=== PATIENT | female | born 1945 | race Caucasian/White ===

== ENCOUNTER 2018-02-04 20:53 | Emergency (ER) | payer MEDICARE, BC ==
[2018-02-04 22:44] LABS: Appearance,Urine Clear (Clear); Bilirubin,Urine Negative (Negative); Blood,Urine Negative (Negative); Color,Urine Light Yellow; Glucose,Urine (UA) Negative (Negative); Ketones,Urine Negative (Negative); Leukocyte Esterase,Urine Negative (Negative); Nitrite,Urine Negative (Negative); Protein,Urine Negative (Negative); Specific Gravity,Urine 1.007 (1.001-1.035); Urobilinogen,Urine <2.0 mg/dL (<2.0)
[2018-02-04 22:45] VITALS: RESP 18
--- NOTE | 2018-02-04 23:11 | ED ---
Female Urogenital HPI - General Chief complaint: Urogenital Stated complaint: bladder problems Time Seen by Provider: 02/04/18 21:31 Source: patient, RN notes reviewed, old records reviewed Mode of arrival: ambulatory Limitations: no limitations - History of Present Illness Initial comments: Patient is a 72-year-old female presents with a bulge from her bladder. Patient states that she has been working in her garden today doing a lot of heavy lifting. She felt a sudden pull involved in her bladder. Just concerned for possibility of urinary tract infection. Is your purse that she's had two children. Patient had a hysterectomy. - Related Data Home Medications Medication Instructions Recorded Confirmed Aspirin 81 mg PO DAILY 01/09/14 02/04/18 Jamie Cit/Mag/D3/Zn/General Operations Agent/Jorge/Bor 1 tab PO DAILY 01/09/14 02/04/18 [Citracal-Vit D + Magnesium Tab] Cholecalciferol [Vitamin D3] 2,000 unit PO DAILY@1200 01/09/14 02/04/18 Citalopram Hydrobromide [CeleXA] 10 mg PO DAILY 01/09/14 02/04/18 Cyanocobalamin [Vitamin B-12] 500 mcg PO DAILY@1200 01/09/14 02/04/18 Levothyroxine Sodium [Synthroid] 100 mcg PO DAILY 01/09/14 02/04/18 Simvastatin [Zocor] 10 mg PO HS 01/09/14 02/04/18 Ubidecarenone [Coq-10] 200 mg PO DAILY 01/09/14 02/04/18 rOPINIRole HCL [Requip] 0.5 mg PO HS 01/09/14 02/04/18 ALPRAZolam [Xanax] 0.25 mg PO DAILY PRN 02/04/18 02/04/18 Climax-3 Fatty Acids/Fish Oil [Fish 1 cap PO DAILY 02/04/18 02/04/18 Oil 1,000 mg Softgel] Ranitidine HCl 150 mg PO DAILY PRN 02/04/18 02/04/18 traZODone HCL [Desyrel] 100 mg PO HS 02/04/18 02/04/18 Allergies Allergy/AdvReac Type Severity Reaction Status Date / Time No Known Allergies Allergy Verified 02/04/18 21:24 Review of Systems ROS Statement: Those systems with pertinent positive or pertinent negative responses have been documented in the HPI. ROS Other: All systems not noted in ROS Statement are negative. Past Medical History Past Medical History: Hyperlipidemia, Musculoskeletal Disorder, Neurologic Disorder, Thyroid Disorder Additional Past Medical History / Comment(s): osteoporosis, restless leg History of Any Multi-Drug Resistant Organisms: None Reported Past Surgical History: Appendectomy, Hysterectomy, Tonsillectomy Additional Past Surgical History / Comment(s): Lt cataract 12/2013 Past Anesthesia/Blood Transfusion Reactions: No Reported Reaction Past Psychological History: Anxiety, Depression Smoking Status: Never smoker - Past Family History Mother Family Medical History: Cancer, Coronary Artery Disease (CAD) Additional Family Medical History / Comment(s): colon General Exam - General Exam Comments Initial Comments: 72 year old female, no dsitress. Limitations: no limitations Head exam: Present: atraumatic, normocephalic, normal inspection Eye exam: Present: normal appearance, PERRL, EOMI. Absent: scleral icterus, conjunctival injection, periorbital swelling ENT exam: Present: normal exam, mucous membranes moist Neck exam: Present: normal inspection. Absent: tenderness, meningismus, lymphadenopathy Respiratory exam: Present: normal lung sounds bilaterally. Absent: respiratory distress, wheezes, rales, rhonchi, stridor Cardiovascular Exam: Present: regular rate, normal rhythm, normal heart sounds. Absent: systolic murmur, diastolic murmur, rubs, gallop, clicks GI/Abdominal exam: Present: soft, normal bowel sounds. Absent: distended, tenderness, guarding, rebound, rigid External exam: Present: normal external exam Speculum exam: Present: other (evidence of cystocele). Absent: normal speculum exam By manual exam: Present: normal by manual exam. Absent: cervical motion tenderness, adnexal tenderness Extremities exam: Present: normal inspection, full ROM, normal capillary refill. Absent: tenderness, pedal edema, joint swelling, calf tenderness Back exam: Present: normal inspection Neurological exam: Present: alert, oriented X3, CN II-XII intact Psychiatric exam: Present: normal affect, normal mood Course Vital Signs 02/04/18 02/04/18 02/04/18 21:03 22:44 23:20 Temperature 98.1 F 98.3 F Pulse Rate 71 62 58 L Respiratory 16 18 18 Rate Blood Pressure 161/79 132/60 146/67 O2 Sat by Pulse 97 98 98 Oximetry Medical Decision Making - Medical Decision Making Presents with a bulge in her pelvic region concern for a bladder bulging. She was doing heavy lifting today. On physical exam she does have an evidence of cystocele. Urinalysis is negative for infection. Patient will follow up with OB /THERMOSTAT MACHINE TENDER and gone and urology for possibly a bladder sling and repair. Patient agrees to plane will comply. Discussed no heavy lifting. - Lab Data Lab Results 02/04/18 Range/Units 22:33 Urine Color Light Yellow Urine Appearance Clear (Clear) Urine pH 7.0 (5.0-8.0) Ur Specific [place] 1.007 (1.001-1.035) Urine Protein Negative (Negative) Urine Glucose (UA) Negative (Negative) Urine Ketones Negative (Negative) Urine Blood Negative (Negative) Urine Nitrite Negative (Negative) Urine Bilirubin Negative (Negative) Urine Urobilinogen <2.0 (<2.0) mg/dL Ur Leukocyte Esterase Negative (Negative) Disposition Clinical Impression: Bladder prolapse Disposition: HOME SELF-CARE Condition: Good Instructions: Cystocele (ED) Additional Instructions: Patient has a follow-up with primary care provider as well as urologist and alum operator. Return to emergency department if any alarming signs or symptoms occur. Is patient prescribed a controlled substance at d/c from ED?: No When asked, does pt state using other controlled substances?: No If prescribed controlled substance>3 days was MAPS reviewed?: No If opioid is for acute pain is fill amount 7 days or less?: No If Rx opioid, was Start Talking consent form obtained?: No Referrals: Woody Abreu MD [Primary Care Provider] - 1-2 days Elvia Diaz DO [Doctor of Osteopathic Medicine] - 1-2 days Oli Jett MD [STAFF PHYSICIAN] - 1-2 days Time of Disposition: 23:10
[2018-02-04 23:21] VITALS: BP 146/67; PULSE 58; TEMP 98.3
== END 2018-02-04 23:33 | disposition home or self-care (01) ==
LOC: EC 20:53
DX: N81.10 Cystocele, unspecified (principal); E78.5 Hyperlipidemia, unspecified; G25.81 Restless legs syndrome; E07.9 Disorder of thyroid, unspecified; F32.9 Major depressive disorder, single episode, unspecified; F41.9 Anxiety disorder, unspecified; Z79.82 Long term (current) use of aspirin; Z79.899 Other long term (current) drug therapy; Z90.710 Acquired absence of both cervix and uterus; X50.0XXA Overexertion from strenuous movement or load, initial encounter; Y93.89 Activity, other specified; Y92.007 Garden or yard of unspecified non-institutional (private) residence as the place of occurrence of the external cause
CPT/HCPCS: 81003; 99284

== ENCOUNTER 2020-04-24 05:54 | Day surgery (SDC) | payer BC, MEDICARE ==
[~2020-04-24 05:54] MED LIST: ALPRAZolam 0.25 MG TAB PO PRN; ALPRAZolam 0.5 MG TAB PO PRN; NITROGLYCERIN SL TABS 0.4 MG TAB SUBLINGUAL PRN; SODIUM CHLORIDE 0.9% 1,000 ML in EMPTY BAG 1 BAG IV ONE
[2020-04-24] MEDS ORDERED: SODIUM CHLORIDE 0.9% 1,000 ML IV ONE (06:44)
[2020-04-24] MEDS ORDERED: ATORVASTATIN 80 MG TAB PO ONE (07:00)
[2020-04-24] MEDS ORDERED: ASPIRIN 325 MG TAB PO ONE (07:00)
[2020-04-24] MEDS ORDERED: LIDOCAINE 1% INJ 10MG/ML (20 ML MDV) ONE (07:17)
[2020-04-24] MEDS ORDERED: VERAPAMIL 2.5 MG/ML 2 ML AMP ONE (07:17)
[2020-04-24] MEDS ORDERED: fentaNYL (PF) 50 MCG/ML 2 ML AMP ONE (07:17)
[2020-04-24] MEDS ORDERED: fentaNYL (PF) 50 MCG/ML 2 ML AMP IV ONE (07:24)
[2020-04-24] MEDS ORDERED: LIDOCAINE 1% INJ 10MG/ML (20 ML MDV) SQ ONE (07:27)
[2020-04-24] MEDS ORDERED: MIDAZOLAM 2 MG/2 ML VIAL IV ONE (07:29)
[2020-04-24] MEDS ORDERED: VERAPAMIL SYRINGE (5 MG/10 ML) INTRAARTER ONE (07:30)
[2020-04-24] MEDS ORDERED: CLOPIDOGREL 75 MG TAB ONE (07:43)
[2020-04-24] MEDS ORDERED: BIVALIRUDIN BOLUS 250 MG/50 ML IV ONE (07:47)
[2020-04-24] MEDS ORDERED: CLOPIDOGREL 75 MG TAB PO ONE (07:48)
[2020-04-24] MEDS ORDERED: BIVALIRUDIN 250 MG in SODIUM CHLORIDE 0.9% 50 ML IV ONE (07:48)
[2020-04-24] MEDS ORDERED: NITROGLYCERIN 1000MCG/10ML SYRINGE INTRACORON ONE (07:54)
[2020-04-24] MEDS ORDERED: IOPAMIDOL-370 125ML BTL INJ ONE (07:56)
[2020-04-24] MEDS ORDERED: IOPAMIDOL-370 100ML BTL INJ ONE (08:05)
[2020-04-24] MEDS ORDERED: NITROGLYCERIN SL TABS 0.4 MG TAB SUBLINGUAL PRN (08:24)
[2020-04-24] MEDS ORDERED: ZOLPIDEM 5 MG TAB PO PRN (08:24)
[2020-04-24] MEDS ORDERED: MAG HYDROX/AL HYDROX/SIMETH 30 ML CUP PO PRN (08:24)
[2020-04-24] MEDS ORDERED: ATROPINE SULFATE 0.1 MG/ML 10ML SYRINGE IV PRN (08:24)
[2020-04-24] MEDS ORDERED: RX INFO: IV CONTRAST WAS GIVEN 1 EACH MISC MISCELLANE PRN (08:24)
[2020-04-24] MEDS ORDERED: SODIUM CHLORIDE 0.9% 1,000 ML IV SCH (08:30)
[2020-04-24] MEDS ORDERED: FAMOTIDINE 20 MG TAB PO SCH ×2 (09:00→21:00)
[2020-04-24] MEDS ORDERED: LEVOTHYROXINE 50 MCG TAB PO SCH (09:30)
[2020-04-24 09:38] LABS: Cholesterol 114 mg/dL (<200); HDL Cholesterol 34 mg/dL (40-60); LDL Cholesterol,Calculated 46 mg/dL (0-99); Triglycerides 168 mg/dL (<150)
--- NOTE | 2020-04-24 10:04 | CC ---
CARDIAC CATHETERIZATION REPORT Mrs. Chambers is a 74-year-old female with a known history of hyperlipidemia, history of coronary artery disease who presented with new onset exertional chest discomfort, consistent with angina pectoris. In view of that, recommendation made regarding cardiac catheterization. The procedures, risks, and complication were discussed with the patient who is in full understanding and agreement. PROCEDURE: Patient was brought to laborer pie bakery in a fasting semi-sedated state after receiving fentanyl and Benadryl and achieving moderate conscious sedated state. Using Xylocaine anesthesia and Seldinger technique, a 6-Greek sheath was introduced in the right radial artery. Selective right and left coronary angiography performed using 5-Greek 3.5 bend right and left Evelio catheter, multiple views of the coronary artery including hemiaxial views were obtained. Following that, angioplasty and stenting was performed, following that 5-Greek tight pigtail catheter introduced into the left ventricle and pressures were calculated. Following that, catheter and sheath were removed. Hemostasis was obtained and deployment of TR band. There was no immediate complication. Patient is returned to her room in stable condition. FINDINGS: LEFT MAIN: This is a short size vessel, bifurcating into left circumflex, left main coronary artery has no evidence of high-grade stenosis. LEFT ANTERIOR DESCENDING ARTERY: This is a large-sized vessel, reaching toward the apex with a wraparound apex segment, giving rise to a large diagonal branch at the takeoff of the first septal rn field case manager. There is a long 99% stenosis, there is slow flow in the distal LAD. LEFT CIRCUMFLEX: This is a nondominant large size vessel giving rise to 4 obtuse marginal branch. The second one is the largest in caliber, the second obtuse marginal branch has a 20% plaque. The rest of the vessel has no high-grade stenosis. RIGHT CORONARY ARTERY: This is a dominant vessel, large in caliber, bifurcating distally to PDA and posterolateral segment and branches. The right coronary artery in mid segment, has an intimal disease of 30% to 40%. The rest of the vessel has no high- grade stenosis. COLLATERALS: There is collateral from the right coronary system toward the LAD through the septal perforators. LEFT VENTRICULOGRAM: Left ventriculogram is not performed. HEMODYNAMICS: There was no gradient across the aortic valve. The left ventricular end- diastolic pressure calderon 12-16 mmHg. CONCLUSION: 1. Subtotally occluded proximal LAD in a long segment. 2. Mild disease in the left circumflex and the right coronary artery. RECOMMENDATION: In view of finding anatomy, I recommend proceeding with angioplasty and stenting of the LAD. The procedures, risks, and complication were discussed with the patient who is in full understanding and agreement. SORAYA / DILIP: [id number] /
--- NOTE | 2020-04-24 10:14 | LTR ---
DATE OF SERVICE: 04/24/2020 RE: Malu Chambers Dear Dr. Abreu; I had the pleasure to perform cardiac catheterization and coronary angioplasty and stenting on Mrs. Chambers at [facility] on April 24, 2020 and a full coy of the procedure note will be forwarded to you. In brief, she was found to have subtotally occluded proximal and mid LAD and underwent successful stenting of that vessel. I am hopeful that this procedure will stabilized her status and thank you again for allowing me to participate in this patient's personal care. Please feel free to call for any questions. Sincerely yours, MD AVANI GrijalvaL / ROBERTN: [id number] /
--- NOTE | 2020-04-24 10:14 | PTCA ---
PERCUTANEOUSTRANS CORORONARY ANGIOGRAPHY Mrs. Chambers is a 74-year-old female who presented with symptoms of new onset exertional angina pectoris, underwent cardiac catheterization, was found to have critical stenosis involving the proximal LAD. In view of that, recommendation made regarding angioplasty and stenting, the procedures, risks, and complication were discussed with the patient who is in full understanding and agreement. PROCEDURE: A 6-Croatian EBU 3.75 guiding catheter introduced into the system after cannulating the left main, a 0.014 balanced medium weight J-wire was advanced across the lesion, positioned distally, then a 2.5 x 15 mm Trek balloon was advanced. One inflation was performed at 8 atmospheres. Following that, the balloon was removed and a 3.5 x 23 mm Xience [place] stent was advanced, deployed and post dilated at 16 atmospheres, after the last inflation, after appropriate wait, the balloon and the guidewire were withdrawn back in the guiding catheter. Images were obtained and repeated. Those images reveal stable successful stenting. At that point, the guiding catheter, the balloon and the guidewire were removed. The left ventricular end-diastolic pressure was calculated. Following that, catheter and sheath were removed. Hemostasis was obtained with deployment of TR band. There was no immediate complication. Patient was returned to his room in stable condition. Of note, the patient had arm discomfort with inflation. This resulted in the end of the procedure. She had no significant EKG changes. She received Angiomax per protocol as well as oral loading dose of clopidogrel. RESULTS: Successful stenting of a long segment of the proximal mid LAD with reduction of stenosis from 99% to 0%. RECOMMENDATION: Patient will be continued on aspirin, Plavix and statin. The importance of dual antiplatelet treatment were discussed with the patient, her family and they are in full understanding and agreement. Duration of sedation 39 minutes. MMODL / IJN: [id number] /
[2020-04-24 11:03] VITALS: BMI 26.0
[2020-04-24] MEDS: LEVOTHYROXINE 100 MCG TAB PO SCH (11:10)
[2020-04-24] MEDS ORDERED: ACETAMINOPHEN TAB 325 MG TAB PO PRN (13:11)
[2020-04-24] MEDS ORDERED: HYDROcodone/APAP 5-325MG 1 EACH TAB PO STA (14:51)
[2020-04-24] MEDS ORDERED: CHOLECALCIFEROL 1,000 UNIT TAB PO SCH (17:30)
[2020-04-24] MEDS ORDERED: traZODone HCL 100 MG TAB PO SCH (21:00)
[2020-04-24] MEDS: METOPROLOL TARTRATE 25 MG TAB PO SCH (21:45)
[2020-04-25] MEDS: LEVOTHYROXINE 100 MCG TAB PO SCH (06:53)
[2020-04-25 07:03] LABS: African American GFR (CKD) >90 (>60 ml/min/1.73 sqM); Anion Gap 5 mmol/L; Blood Urea Nitrogen 9 mg/dL (7-17); Calcium 8.7 mg/dL (8.4-10.2); Carbon Dioxide 22 mmol/L (22-30); Chloride 111 mmol/L (98-107); Glucose 129 mg/dL (74-99); Non-African American GFR(CKD) >90 (>60 ml/min/1.73 sqM); Sodium 138 mmol/L (137-145)
[2020-04-25 07:07] LABS: Potassium 4.6 mmol/L (3.5-5.1)
[2020-04-25 08:19] VITALS: BP 142/67; PULSE 69; RESP 18; TEMP 97.4
[2020-04-25] MEDS: METOPROLOL TARTRATE 25 MG TAB PO SCH (08:34)
[2020-04-25] MEDS ORDERED: CLOPIDOGREL 75 MG TAB PO SCH (09:00)
[2020-04-25] MEDS ORDERED: ASPIRIN 81 MG PO SCH (09:00)
[2020-04-25] MEDS ORDERED: ATORVASTATIN 80 MG TAB PO SCH (09:00)
--- NOTE | 2020-04-25 09:32 | PN ---
PROGRESS NOTE Mrs. Chambers is a 74-year-old female who presented with symptoms of new onset angina pectoris, underwent cardiac catheterization, was found to have critical stenosis involving the proximal LAD, underwent stenting of that vessel. She is doing well this morning ambulating without difficulty, denying any chest pain or dyspnea. She is feeling better overall. She continues to be in sinus mechanism. She continues on aspirin once a day, Lipitor 80 mg daily, Plavix 75 mg daily, levothyroxine, metoprolol tartrate 25 mg twice a day. PHYSICAL EXAMINATION: Blood pressure 134/70 with heart rate in the 60s. LUNGS: Clear. HEART: Regular rate and rhythm, S1, S2. No S3. No rub. ABDOMEN: Soft, nontender. EXTREMITIES: No edema, right radial pulse intact. EKG revealed no acute changes. LAB DATA: Revealed BUN and creatinine 9 and 0.49, potassium 4.6. Cholesterol of 114, LDL of 46. IMPRESSION: 1. Status post stenting of the LAD. 2. Hypertension. 3. Hyperlipidemia. RECOMMENDATION: Patient will be discharged home today and followed as an outpatient. MMODL / IJN: [id number] /
== END 2020-04-25 09:13 | disposition home or self-care (01) ==
LOC: CATHCVL 05:54 → 3SCARD 09:01 → CATHCVL 04-25 09:13
PROVIDERS: ATTEND Internal Medicine Interventional Cardiology
DX: I25.110 Atherosclerotic heart disease of native coronary artery with unstable angina pectoris (principal); I25.82 Chronic total occlusion of coronary artery; I10 Essential (primary) hypertension; E03.9 Hypothyroidism, unspecified; E78.2 Mixed hyperlipidemia; Z79.02 Long term (current) use of antithrombotics/antiplatelets; Z79.82 Long term (current) use of aspirin; Z79.890 Hormone replacement therapy; Z79.899 Other long term (current) drug therapy; Z87.891 Personal history of nicotine dependence
CPT/HCPCS: 93458; 85347; 80061; 80048; C9600; C1769 ×2; C1887; C1725; C1874; C1894; J2250; J2001; J3010; J0583; Q9967 ×2

== ENCOUNTER 2021-04-03 09:32 | Day surgery (SDC) | payer MEDICARE ==
[2021-04-01 15:42] VITALS: BMI 22.3
[~2021-04-03 09:32] MED LIST changes: +ASPIRIN 325 MG TAB PO STA; +ATORVASTATIN 80 MG TAB PO STA
[2021-04-03] MEDS ORDERED: ISOSORBIDE MONONITRATE ER 30 MG TAB.ER.24H PO STA (09:58)
[2021-04-03] MEDS ORDERED: METOPROLOL TARTRATE 25 MG TAB PO STA (09:59)
[2021-04-03 10:06] LABS: Glucose,Whole Blood 124 mg/dL (75-99)
[2021-04-03 12:36] LABS: Basophils % (A) 1 %; Eosinophils # (A) 0.1 k/uL (0-0.7); Eosinophils % (A) 1 %; HCT 42.3 % (34.0-46.0); HGB 14.5 gm/dL (11.4-16.0); Lymphocytes # (A) 1.7 k/uL (1.0-4.8); Lymphocytes % (A) 29 %; MCH 31.9 pg (25.0-35.0); MCHC 34.2 g/dL (31.0-37.0); MCV 93.3 fL (80.0-100.0); Mean Platelet Volume 7.6; Monocytes # (A) 0.4 k/uL (0-1.0); Monocytes % (A) 7 %; Neutrophils # (A) 3.5 k/uL (1.3-7.7); Neutrophils % (A) 60 %; Platelet Count 274 k/uL (150-450); RBC 4.53 m/uL (3.80-5.40); RDW 14.1 % (11.5-15.5); WBC 5.7 k/uL (3.8-10.6)
[2021-04-03] MEDS ORDERED: LIDOCAINE 1% INJ 10MG/ML (20 ML MDV) SQ ONE (12:47)
[2021-04-03] MEDS ORDERED: fentaNYL (PF) 50 MCG/ML 2 ML AMP IV ONE (12:50)
[2021-04-03] MEDS ORDERED: MIDAZOLAM 2 MG/2 ML VIAL IV ONE (12:50)
[2021-04-03] MEDS ORDERED: VERAPAMIL SYRINGE (5 MG/10 ML) INTRAARTER ONE (12:51)
[2021-04-03] MEDS: HEPARIN SODIUM 1,000 UN/ML (10ML VL) IV ONE ×2 (12:53→13:01)
[2021-04-03] MEDS ORDERED: NITROGLYCERIN 1000MCG/10ML SYRINGE INTRACORON ONE (13:17)
[2021-04-03] MEDS ORDERED: IOPAMIDOL-370 125ML BTL INJ ONE (13:27)
[2021-04-03] MEDS ORDERED: IOPAMIDOL-370 100ML BTL INJ ONE (13:40)
[2021-04-03] MEDS ORDERED: MAG HYDROX/AL HYDROX/SIMETH 30 ML CUP PO PRN (13:54)
[2021-04-03] MEDS ORDERED: ZOLPIDEM 5 MG TAB PO PRN (13:54)
[2021-04-03] MEDS ORDERED: ATROPINE SULFATE 0.1 MG/ML 10ML SYRINGE IV PRN (13:54)
[2021-04-03] MEDS ORDERED: RX INFO: IV CONTRAST WAS GIVEN 1 EACH MISC MISCELLANE PRN (13:54)
[2021-04-03] MEDS ORDERED: NITROGLYCERIN SL TABS 0.4 MG TAB SUBLINGUAL PRN (13:54)
[2021-04-03] MEDS ORDERED: SODIUM CHLORIDE 0.9% 1,000 ML IV SCH (14:00)
--- NOTE | 2021-04-03 16:17 | CC ---
CARDIAC CATHETERIZATION REPORT Mrs. Chambers is a 75-year-old female with a known history of coronary artery disease status post stenting of the LAD in April 2020 who presented with symptoms of her recurrent exertional chest discomfort. In view of that, recommendation cardiac catheterization. The procedure as well as the risks and the complications were discussed with the patient who is in full understanding and agreement. PROCEDURE: Patient was brought to the blender laborer in a fasting semisedated state after receiving fentanyl and Benadryl and achieving moderate conscious sedated state using Xylocaine anesthesia and Seldinger technique, a 6-German sheath was introduced in the right radial artery. Selective right and left coronary angiography performed using 5- German 3.5 bend, right and left Evelio' catheter. Multiple views of the coronary artery including hemiaxial views were obtained. The right Evelio catheter was used to cross the aortic valve and left ventricular end-diastolic pressure was calculated. Following that, catheter was removed. Images were reviewed. FINDINGS: LEFT MAIN: This is a short size vessel, bifurcating into left circumflex, left anterior descending artery, left main coronary artery has no evidence of high-grade stenosis. LEFT ANTERIOR DESCENDING CORONARY ARTERY: This vessel is totally occluded proximally at the takeoff of the first septal senior commissary agent. There is no significant antegrade flow. The stented segment appears to be totally occluded. LEFT CIRCUMFLEX: This is a nondominant vessel giving rise to two large obtuse marginal branch. The first obtuse marginal branch has a 20% to 30% plaque without any evidence of high-grade stenosis. RIGHT CORONARY ARTERY: This is a large dominant vessel bifurcating into PDA and posterolateral segment and branches. The right coronary artery has tubular lesion in the mid segment of 20% to 30% without any evidence of high-grade stenosis. COLLATERALS: There are ipsilateral collaterals and contralateral collaterals to the mid LAD. LEFT VENTRICULOGRAM: Left ventriculogram was not performed. HEMODYNAMICS: There was no gradient across the aortic valve. The left ventricular end- diastolic pressure was 12-16 mmHg. CONCLUSION: 1. Total occlusion of the proximal LAD artery in the stented segment. 2. Mild disease in the RCA and the left circumflex. RECOMMENDATIONS: In view of findings and anatomy, I recommend proceeding with angioplasty and stenting of the left anterior descending artery. The procedure as well as the risks and complications were discussed with the patient who is in full understanding and agreement. MMODL / IJN: [id number] / MTDD
--- NOTE | 2021-04-03 16:28 | PTCA ---
PERCUTANEOUSTRANS CORORONARY ANGIOGRAPHY Mrs. Chambers is a 75-year-old female with history of coronary artery disease, history of diabetes and hyperlipidemia who presented with symptoms of angina pectoris, underwent cardiac catheterization, was found to have a totally occluded proximal LAD. In view of that, recommendations was made regarding angioplasty and stenting. The procedure as well as the risks and the complications were discussed with the patient who is in full understanding and agreement. PROCEDURE: A 6-Syrian [place] 3.5 guiding catheter was introduced in the system. After cannulating the left main, a 0.014 balanced medium weight J-wire with a SuperCross straight microcatheter was advanced and the total occlusion was crossed and the wire was positioned distally. Subsequently, the microcatheter was removed and a 3.0 x 12 mm NC Trek balloon was advanced and inflations at a maximum of 8 atmospheres were done. Following that, the balloon was removed and an [place] intravascular ultrasound catheter was advanced and images were obtained. Following that, the IVUS catheter was removed and a 3.5 x 23 mm Xience [place] was advanced, deployed and post dilated at 16 atmospheres. Following that, a 4.0 x 15 mm NC Trek balloon was advanced and inflation at 12 atmospheres were done. Following that, the balloon was removed and the [place] IVUS catheter was introduced and images were obtained. Following that, the catheter was removed. Images were obtained and repeated. Those images reveal stable successful stenting. At that point, the guiding catheter, the balloon and the guidewire were removed. The sheath was removed. Hemostasis was obtained with deployment of a TR band. There was no immediate complication. Patient was returned to room in stable condition. Of note, the patient received 5000 units of intravenous heparin as well as intra-arterial verapamil. Her ACT was followed and she was continued on clopidogrel. She had chest discomfort and EKG changes with the inflations that resolved at the end procedure. RESULTS: Successful stenting of the totally occluded LAD with reduction of stenosis from 100% to 0%. RECOMMENDATIONS: Patient will be continued on aspirin, Plavix, beta blockers, salima inhibitors and statin. The importance of dual antiplatelet treatment were discussed with the patient and her family and they are in full understanding and agreement. Duration of sedation is 52 minutes. MMODL / IJN: [id number] / [facility]
--- NOTE | 2021-04-03 16:32 | LTR ---
DATE OF SERVICE: 04/03/[address] Abreu: I had the pleasure of performing coronary angiography and coronary angioplasty and stenting on Mrs. Chambers at [facility] on April 03 and a full copy of procedure note will be forwarded to you. In brief, she was found to have a totally occluded left anterior descending artery, underwent stenting of that vessel. I am hopeful that this procedure will stabilize her status. I will keep you updated on her progress. Thank you again for allowing me to participate in her care. Please feel free to call for any questions. Sincerely, SORAYA / IJN: [id number] /
[2021-04-03 17:31] LABS: Glucose,Whole Blood 120 mg/dL (75-99)
[2021-04-03 19:40] VITALS: RESP 16
[2021-04-03] MEDS: METOPROLOL TARTRATE 25 MG TAB PO SCH (19:54)
[2021-04-03 20:04] LABS: Glucose,Whole Blood 130 mg/dL (75-99)
[2021-04-03] MEDS ORDERED: FAMOTIDINE 20 MG TAB PO SCH (21:00)
[2021-04-03] MEDS ORDERED: OXYBUTYNIN XL 5 MG TAB.ER.24 PO SCH (21:00)
[2021-04-04] MEDS ORDERED: ACETAMINOPHEN TAB 325 MG TAB PO PRN (02:00)
[2021-04-04 05:30] LABS: African American GFR (CKD) >90 (>60 ml/min/1.73 sqM); Anion Gap 7 mmol/L; Blood Urea Nitrogen 11 mg/dL (7-17); Calcium 9.1 mg/dL (8.4-10.2); Carbon Dioxide 23 mmol/L (22-30); Chloride 108 mmol/L (98-107); Glucose 115 mg/dL (74-99); Non-African American GFR(CKD) >90 (>60 ml/min/1.73 sqM); Sodium 138 mmol/L (137-145)
[2021-04-04] MEDS ORDERED: LEVOTHYROXINE 100 MCG TAB PO SCH (06:30)
[2021-04-04 07:33] LABS: Glucose,Whole Blood 100 mg/dL (75-99)
[2021-04-04 08:33] VITALS: BP 149/80; TEMP 97.7
[2021-04-04] MEDS: METOPROLOL TARTRATE 25 MG TAB PO SCH (08:52)
[2021-04-04 08:53] VITALS: PULSE 60
[2021-04-04] MEDS ORDERED: ATORVASTATIN 80 MG TAB PO SCH (09:00)
[2021-04-04] MEDS ORDERED: ASPIRIN 81 MG PO SCH (09:00)
[2021-04-04] MEDS ORDERED: CLOPIDOGREL 75 MG TAB PO SCH (09:00)
--- NOTE | 2021-04-04 12:06 | PN ---
PROGRESS NOTE Mrs. Chambers is a 75-year-old female known history of hypertension, hyperlipidemia, diabetes mellitus, who presented with symptoms of chest discomfort, underwent cardiac catheterization was found to have a totally occluded LAD, underwent revascularization of that vessel with stenting and intravascular ultrasound. She is doing well this morning. She denies any chest pain her breathing has been stable. She denies any dizziness or palpitation. She denies any nausea. She continued on aspirin once a day Lipitor 80 mg daily Plavix 75 mg daily, levothyroxine, metoprolol tartrate 25 mg twice a day. PHYSICAL EXAMINATION: Blood pressure 107/60 with a heart rate in 50s. LUNGS: Clear. HEART: Regular rhythm S1, S2. No S3. No rub. ABDOMEN: Soft nontender. EXTREMITIES: No edema right radial pulse intact. EKG no acute changes. IMPRESSION: 1. Status post stenting of the RCA of the LAD. 2. Hypertension. 3. Hyperlipidemia. 4. Diabetes mellitus. RECOMMENDATION: Patient will be discharged home today and followed in 1 week. SORAYA / ROBERTN: [id number] /
[2021-04-07] MEDS ORDERED: LEVOTHYROXINE 50 MCG TAB PO SCH (06:30)
== END 2021-04-04 09:57 | disposition home or self-care (01) ==
LOC: CATHCVL 09:32 → 6NMEDSUR 13:38 → CATHCVL 04-04 09:57
PROVIDERS: ATTEND Internal Medicine Interventional Cardiology
DX: I25.10 Atherosclerotic heart disease of native coronary artery without angina pectoris (principal); E11.9 Type 2 diabetes mellitus without complications; E78.5 Hyperlipidemia, unspecified; I10 Essential (primary) hypertension; I25.82 Chronic total occlusion of coronary artery; Z95.5 Presence of coronary angioplasty implant and graft
CPT/HCPCS: 92978; 93458; 80048; 85025; C9600; C1769 ×2; C1887 ×2; C1894; C1725 ×2; C1753; C1874; J2250; J2001; J3010; J1644; Q9967 ×2

== ENCOUNTER 2021-10-30 06:29 | Day surgery (SDC) | payer MEDICARE ==
[2021-10-29 10:42] VITALS: BMI 22.6
[2021-10-30 07:15] VITALS: RESP 16; TEMP 97.8
[2021-10-30 07:29] LABS: Glucose,Whole Blood 124 mg/dL (75-99)
[2021-10-30] MEDS ORDERED: LACTATED RINGERS 1,000 ML IV ONE (07:33)
[2021-10-30] MEDS ORDERED: LIDOCAINE 1% INJ 10MG/ML (20 ML MDV) ONE (07:42)
[2021-10-30] MEDS ORDERED: PROPOFOL 10 MG/ML 20 ML VIAL IV ONE (07:42)
[2021-10-30] MEDS ORDERED: LIDOCAINE 1% (10MG/ML) FOR IV START INTRADERMA PRN (07:50)
[2021-10-30] MEDS ORDERED: LACTATED RINGERS 1,000 ML IV SCH (07:50)
--- NOTE | 2021-10-30 08:00 | P.PCN ---
Date of Procedure: 10/30/21 Procedure(s) Performed: BRIEF HISTORY: Patient is a 76-year-old pleasant white female scheduled for an elective colonoscopy as a part of screening for colorectal neoplasia. She still has strong family history of colon cancer diagnosed in her mother and 2 maternal aunts as well as her first cousin. PROCEDURE PERFORMED: Colonoscopy. PREOPERATIVE DIAGNOSIS: Screening for Colon cancer and family history of colon cancer. IV sedation per Anesthesia. PROCEDURE: After informed consent was obtained, the patient, was brought into the endoscopy unit. IV sedation was administered by Anesthesia under continuous monitoring. Digital rectal examination was normal. Initially the Olympus CF-160 flexible video colonoscope was then inserted in the rectum, gradually advanced into the cecum without any difficulty. Careful examination was performed as the scope was gradually being withdrawn. Ileocecal valve and the appendiceal orifice were visualized and appeared normal. Prep was excellent. Mucosa of the cecum, ascending colon, transverse colon, descending colon, sigmoid colon, and rectum appeared normal. Scattered sigmoid diverticulosis Retroflexion was performed in the rectum and no lesions were seen. The patient tolerated the procedure well. IMPRESSION: Normal-appearing colon from rectum to cecum with no evidence of colorectal neoplasia . Scattered sigmoid diverticulosis. RECOMMENDATIONS: Findings of this examination were discussed with the patient as well as a family. She was advised to have a repeat screening colonoscopy in 5 years from now because of strong family history of colon cancer.
[2021-10-30 08:20] VITALS: BP 111/67; PULSE 57
== END 2021-10-30 08:37 | disposition home or self-care (01) ==
LOC: ORWHC2ENDO 06:29
PROVIDERS: ATTEND Internal Medicine Gastroenterology
DX: Z12.11 Encounter for screening for malignant neoplasm of colon (principal); K57.30 Diverticulosis of large intestine without perforation or abscess without bleeding; K21.9 Gastro-esophageal reflux disease without esophagitis; Z80.0 Family history of malignant neoplasm of digestive organs; I25.10 Atherosclerotic heart disease of native coronary artery without angina pectoris; I10 Essential (primary) hypertension; E78.5 Hyperlipidemia, unspecified; Z95.5 Presence of coronary angioplasty implant and graft; E07.9 Disorder of thyroid, unspecified; E11.9 Type 2 diabetes mellitus without complications; G25.81 Restless legs syndrome; Z79.02 Long term (current) use of antithrombotics/antiplatelets; Z79.84 Long term (current) use of oral hypoglycemic drugs; Z79.890 Hormone replacement therapy; Z79.899 Other long term (current) drug therapy
CPT/HCPCS: J2001; J2704; G0105

== ENCOUNTER 2022-11-01 12:47 | Observation (INO) | payer MEDICARE ==
--- NOTE | 2022-11-01 13:04 | ED ---
Chest Pain HPI - General Chief Complaint: Chest Pain Stated Complaint: Chest pain Time Seen by Provider: 11/01/22 12:52 Source: patient, family Mode of arrival: ambulatory Limitations: no limitations - History of Present Illness Initial Comments: 77-year-old female with a history of coronary artery disease with history of stent history diabetes hypertension hyperlipidemia who states that she was shopping today when he started developing exertional dyspnea and retrosternal chest pressure that was rated 5/10 in severity. She did take one of her own n itroglycerin with some relief and by 10 she had here the pain was gone she states. Currently at rest she is not short of breath and having no pain but she does relate that she's been having increased symptoms recently she also states that she saw Dr. Melo about a week ago but neglected to tell him about the chest tightness going along with the shortness of breath she was having. Currently no fevers chills nausea vomiting sweats no other symptoms or modifying factors at this time MD Complaint: chest pain, other - Related Data Home Medications Medication Instructions Recorded Confirmed Levothyroxine Sodium [Synthroid] 100 mcg PO DAILY 01/09/14 10/30/21 ALPRAZolam [Xanax] 0.25 mg PO DAILY PRN 02/04/18 10/30/21 traZODone HCL [Desyrel] 100 mg PO HS 02/04/18 10/30/21 Cholecalciferol [Vitamin D3 (25 25 mcg PO W/SUPPER 04/19/20 10/30/21 Mcg = 1000 Iu)] Cyanocobalamin [Vitamin B-12] 500 mcg PO DAILY 04/19/20 10/30/21 Famotidine [Pepcid] 20 mg PO HS 04/19/20 10/30/21 Metoprolol Tartrate [Lopressor] 25 mg PO BID 04/19/20 10/30/21 Ubidecarenone [Co Q-10] 100 mg PO W/SUPPER 04/19/20 10/30/21 Vit C/E/Zn/Coppr/Lutein/Zeaxan 1 each PO BID 04/19/20 10/30/21 [Preservision Areds 2 Softgel] Cranberry Fruit Extract [Cranberry] 500 mg PO BID 04/01/21 10/30/21 Tolterodine ER [Detrol LA] 4 mg PO HS 04/01/21 10/30/21 metFORMIN HCL [Glucophage] 500 mg PO DAILY 04/01/21 10/30/21 calcitrioL [Calcitriol] 0.25 mcg PO DAILY 10/29/21 10/30/21 Previous Rx's Medication Instructions Recorded Atorvastatin [Lipitor] 80 mg PO DAILY #90 tab 04/25/20 Clopidogrel [Plavix] 75 mg PO DAILY #90 tab 04/25/20 Allergies Allergy/AdvReac Type Severity Reaction Status Date / Time No Known Allergies Allergy Verified 10/30/21 07:15 Review of Systems ROS Statement: Those systems with pertinent positive or pertinent negative responses have been documented in the HPI. ROS Other: All systems not noted in ROS Statement are negative. 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 and minimal voltage criteria for LVH no acute ST- T wave changes), not changed from: (EKG is essentially unchanged from 04/04/21) Past Medical History Past Medical History: Coronary Artery Disease (CAD), Chest Pain / Angina, Diabetes Mellitus, Eye Disorder, Hyperlipidemia, Hypertension, Thyroid Disorder Additional Past Medical History / Comment(s): macular degeneration, osteoporosis, restless legs, "borderline" diabetes History of Any Multi-Drug Resistant Organisms: None Reported Past Surgical History: Appendectomy, Bladder Surgery, Heart Catheterization With Stent, Hysterectomy, Tonsillectomy Additional Past Surgical History / Comment(s): kvng cataracts rem. Past Anesthesia/Blood Transfusion Reactions: No Reported Reaction Date of Last Stent Placement:: 04/2020 Past Psychological History: No Psychological Hx Reported Smoking Status: Never smoker Past Alcohol Use History: Occasional Past Drug Use History: None Reported - Past Family History Mother Family Medical History: Cancer, Coronary Artery Disease (CAD) Additional Family Medical History / Comment(s): colon General Exam - General Exam Comments Initial Comments: This is a well-developed well-nourished awake alert oriented 4 female Limitations: no limitations General appearance: alert, anxious Head exam: Present: atraumatic, normocephalic, normal inspection Eye exam: Present: normal appearance, PERRL, EOMI. Absent: scleral icterus, conjunctival injection, periorbital swelling ENT exam: Present: normal exam, mucous membranes moist Neck exam: Present: normal inspection, full ROM, other (No stridor JVD or bruit s). Absent: tenderness, meningismus, lymphadenopathy Respiratory exam: Present: normal lung sounds bilaterally. Absent: respiratory distress, wheezes, rales, rhonchi, stridor Cardiovascular Exam: Present: regular rate, normal rhythm, normal heart sounds. Absent: systolic murmur, diastolic murmur, rubs, gallop, clicks GI/Abdominal exam: Present: soft, normal bowel sounds. Absent: distended, tenderness, guarding, rebound, rigid Extremities exam: Present: normal inspection, full ROM, normal capillary refill. Absent: tenderness, pedal edema, joint swelling, calf tenderness Back exam: Present: normal inspection Neurological exam: Present: alert, oriented X3, CN II-XII intact Psychiatric exam: Present: normal affect, normal mood Skin exam: Present: warm, dry, intact, normal color. Absent: rash Course Vital Signs 11/01/22 11/01/22 12:48 12:52 Temperature 98 F Pulse Rate 73 68 Respiratory 18 18 Rate Blood Pressure 129/81 99/61 O2 Sat by Pulse 96 99 Oximetry Chest Pain MDM - MDM Imaging interpreted by me no acute findings. I did discuss the case with the patient and her as well as with Dr. Lala.Was pt. sent in by a medical professional or institution (, PA, RAIL LOADER, urgent care, hospital, or fdc...) When possible be specific @ -No Did you speak to anyone other than the patient for history (EMS, parent, family, police, friend...)? What history was obtained from this source @ -The patient's Did you review nursing and triage notes (agree or disagree)? Why? @ -I reviewed and agree with nursing and triage notes Were old charts reviewed (outside hosp., previous admission, EMS record, old EKG, old radiological studies, urgent care reports/EKG's, fdc records)? Report findings @ -Yes 2020 old charts were reviewed Differential Diagnosis (chest pain, altered mental status, abdominal pain women, abdominal pain men, vaginal bleeding, weakness, fever, dyspnea, syncope, headache, dizziness, GI bleed, back pain, seizure, CVA, palpatations, mental health, musculoskeletal)? @ -Chest pain, dyspnea EKG interpreted by me (3pts min.). @ -As above X-rays interpreted by me (1pt min.). @ -As above] CT interpreted by me (1pt min.). @ -None done U/S interpreted by me (1pt. min.). @ -None done What testing was considered but not performed or refused? (CT, X-rays, U/S, labs)? Why? @ -None What meds were considered but not given or refused? Why? @ -None Did you discuss the management of the patient with other professionals (professionals i.e. , PA, RAIL LOADER, lab, RT, psych nurse, dialysis social worker, room service waiter/waitress, teacher, business liaison officer, assistant case manager)? Give summary @ -Dr. lala Was smoking cessation discussed for >3mins.? @ -No Was critical care preformed (if so, how long)? @ -Yes, 31 minutes Were there social determinants of health that impacted care today? How? (Homelessness, low income, unemployed, alcoholism, drug addiction, transportation, low edu. Level, literacy, decrease access to med. care, snf, rehab)? @ -No Was there de-escalation of care discussed even if they declined (Discuss DNR or withdrawal of care, Hospice)? DNR status @ -No What co-morbidities impacted this encounter? (DM, HTN, Smoking, COPD, CAD, Cancer, CVA, ARF, Chemo, Hep., AIDS, mental health diagnosis, sleep apnea, morbid obesity)? @ -Coronary artery disease, diabetes, hypertension Was patient admitted / discharged? Hospital course, mention meds given and route, prescriptions, significant lab abnormalities, going to OR and other pertinent info. @ -hospital course : The patient was admitted for inpatient evaluation and treatment of exertional dyspnea and chest pain. Cardiology will be consulted specifically Dr. Melo Undiagnosed new problem with uncertain prognosis? @ -No Drug Therapy requiring intensive monitoring for toxicity (Heparin, Nitro, Insulin, Cardizem)? @ -No Were any procedures done? @ -No Diagnosis/symptom? @ -Acute chest pain, unstable angina, exertional dyspnea Acute, or Chronic, or Acute on Chronic? @ -Acute Uncomplicated (without systemic symptoms) or Complicated (systemic symptoms)? @ -default Side effects of treatment? @ -No Exacerbation, Progression, or Severe Exacerbation? @ -No Poses a threat to life or bodily function? How? (Chest pain, [place], [place], pneumonia, PE, COPD, DKA, ARF, appy, cholecystitis, CVA, Diverticulitis, Homicidal, Suicidal, threat to staff... and all critical care pts) @ -Chest pain that evaluated Critical Care Time Critical Care Time: Yes Total Critical Care Time: 31 Disposition Clinical Impression: Chest pain, Unstable angina pectoris, Exertional dyspnea Disposition: ADMITTED IP TO THIS HOSP Condition: Stable Referrals: Anna Ash MD [Primary Care Provider] - 1-2 days Decision Date: 11/01/22 Decision Time: 14:45
[2022-11-01 13:21] LABS: Basophils # (A) 0.1 k/uL (0-0.2); Basophils % (A) 1 %; Eosinophils # (A) 0.2 k/uL (0-0.7); Eosinophils % (A) 2 %; HCT 41.4 % (34.0-46.0); HGB 14.1 gm/dL (11.4-16.0); Lymphocytes # (A) 2.1 k/uL (1.0-4.8); Lymphocytes % (A) 30 %; MCH 31.1 pg (25.0-35.0); MCHC 34.1 g/dL (31.0-37.0); MCV 91.1 fL (80.0-100.0); Mean Platelet Volume 8.1; Monocytes # (A) 0.5 k/uL (0-1.0); Monocytes % (A) 7 %; Neutrophils # (A) 4.1 k/uL (1.3-7.7); Neutrophils % (A) 58 %; Platelet Count 222 k/uL (150-450); RBC 4.54 m/uL (3.80-5.40); RDW 13.6 % (11.5-15.5)
--- NOTE | 2022-11-01 13:32 | XR ---
EXAMINATION TYPE: XR chest 2V DATE OF EXAM: 11/01/2022 1:27 PM COMPARISON: Chest radiographs from 11/01/2022 TECHNIQUE: XR chest 2V Frontal and lateral views of the chest. CLINICAL INDICATION:Female, 77 years old with history of Chest pain; FINDINGS: Lungs/Pleura: Prominent interstitial lung markings are seen scattered throughout the lungs with rosette ening of the diaphragm and increased lucency of the lung apices. No evidence of focal consolidation, pneumothorax or pleural effusion. Pulmonary vascularity: Unremarkable. Heart/mediastinum: Cardiomediastinal silhouette is unremarkable. Musculoskeletal: No acute osseous pathology. IMPRESSION: 1. No acute cardiopulmonary disease process. 2. COPD changes.
[2022-11-01 13:33] LABS: ALT 18 U/L (4-34); AST 22 U/L (14-36); African American GFR (CKD) >90 (>60 ml/min/1.73 sqM); Albumin 4.4 g/dL (3.5-5.0); Alkaline Phosphatase 77 U/L (38-126); Anion Gap 12 mmol/L; Blood Urea Nitrogen 15 mg/dL (7-17); Calcium 9.3 mg/dL (8.4-10.2); Carbon Dioxide 21 mmol/L (22-30); Chloride 104 mmol/L (98-107); Creatine Kinase 31 U/L (30-135); Glucose 166 mg/dL (74-99); Lipase 286 U/L (23-300); Magnesium 2.1 mg/dL (1.6-2.3); Non-African American GFR(CKD) >90 (>60 ml/min/1.73 sqM); Potassium 4.3 mmol/L (3.5-5.1); Sodium 137 mmol/L (137-145); Total Bilirubin 0.5 mg/dL (0.2-1.3); Total Protein 6.8 g/dL (6.3-8.2)
[2022-11-01] MEDS ORDERED: HEPARIN SODIUM 1,000 UN/ML (10ML VL) IV ONE (14:45)
[2022-11-01] MEDS ORDERED: HEPARIN SOD,PORK IN 0.45% NACL 25,000 UNIT in 0.45% NACL 1 250ML.BAG IV SCH (14:45)
[2022-11-01] MEDS ORDERED: NITROGLYCERIN SL TABS 0.4 MG TAB SUBLINGUAL PRN (14:45)
[2022-11-01] MEDS ORDERED: ALPRAZolam 0.25 MG TAB PO PRN (14:47)
[2022-11-01 16:36] LABS: Glucose,Whole Blood 118 mg/dL (70-110)
--- NOTE | 2022-11-01 17:12 | P.HPIM ---
History of Present Illness This is a pleasant 77 years old female with multiple medical problems as below including Coronary Artery Disease status post stent, Diabetes Mellitus, Hyperlipidemia, Hypertension, hypothyroidism,, macular degeneration, osteoporosis, restless legs, Presents because of chest pain has been going on on and off for about 3 months, she described it as pressure rather than pain in the middle of her chest radi ating to the right side, today she was doing shopping when she felt it as 6/10 and decided to come to the hospital. Associated with some dyspnea but no coughing. Discharge patient denies change in urine or bowel habits. No headache weakness or numbness She denies smoking alcohol or illicit drugs CBC, BMP liver enzymes are unremarkable. Troponin 1 is negative with 0.012, d- dimer negative at 0.3 Chest x-ray: No acute process EKG showing normal sinus rhythm at [address]-T changes On admission resumed her aspirin and started on heparin drip Review of Systems Review of systems CONSTITUTIONAL: No fever, no malaise, no fatigue. HEENT: No recent visual problems or hearing problems. Denied any sore throat. CARDIOVASCULAR: No orthopnea, PND, no palpitations, no syncope. PULMONARY: No shortness of breath, no cough, no hemoptysis. GASTROINTESTINAL: No diarrhea, no nausea, no vomiting, no abdominal pain. Normoactive bowel sounds. NEUROLOGICAL: No headaches, no weakness, no numbness. HEMATOLOGICAL: Denies any bleeding or petechiae. GENITOURINARY: Denies any burning micturition, frequency, or urgency. MUSCULOSKELETAL/RHEUMATOLOGICAL: Denies any joint pain, swelling, or any muscle pain. ENDOCRINE: Denies any polyuria or polydipsia. Past Medical History Past Medical History: Coronary Artery Disease (CAD), Chest Pain / Angina, Diabetes Mellitus, Eye Disorder, Hyperlipidemia, Hypertension, Thyroid Disorder Additional Past Medical History / Comment(s): macular degeneration, osteoporosis, restless legs, "borderline" diabetes History of Any Multi-Drug Resistant Organisms: None Reported Past Surgical History: Appendectomy, Bladder Surgery, Heart Catheterization With Stent, Hysterectomy, Tonsillectomy Additional Past Surgical History / Comment(s): kvng cataracts rem. Past Anesthesia/Blood Transfusion Reactions: No Reported Reaction Date of Last Stent Placement:: 10/29/2021 Past Psychological History: No Psychological Hx Reported Smoking Status: Never smoker Past Alcohol Use History: Occasional Past Drug Use History: None Reported - Past Family History Mother History Unknown: Yes Family Medical History: Cancer, Coronary Artery Disease (CAD) Additional Family Medical History / Comment(s): colon Medications and Allergies Home Medications Medication Instructions Recorded Confirmed Type Levothyroxine Sodium [Synthroid] 100 mcg PO DAILY 01/09/14 11/01/22 History ALPRAZolam [Xanax] 0.125 - 0.25 mg PO DAILY PRN 02/04/18 11/01/22 History traZODone HCL [Desyrel] 100 mg PO HS 02/04/18 11/01/22 History Cyanocobalamin [Vitamin B-12] 500 mcg PO DAILY 04/19/20 11/01/22 History Famotidine [Pepcid] 20 mg PO HS 04/19/20 11/01/22 History Metoprolol Tartrate [Lopressor] 25 mg PO BID 04/19/20 11/01/22 History Vit C/E/Zn/Coppr/Lutein/Zeaxan 1 cap PO BID 04/19/20 11/01/22 History [Preservision Areds 2 Softgel] Tolterodine ER [Detrol LA] 4 mg PO HS 04/01/21 11/01/22 History Aspirin EC [Ecotrin Low Dose] 81 mg PO HS 11/01/22 11/01/22 History Cholecalciferol [Vitamin D3 (25 25 mcg PO DAILY 11/01/22 11/01/22 History Mcg = 1000 Iu)] Cranberry Fruit Extract [Cranberry] 500 mg PO DAILY 11/01/22 11/01/22 History Levothyroxine Sodium [Synthroid] 50 mcg PO SUTU 11/01/22 11/01/22 History Nitroglycerin Sl Tabs [Nitrostat] 0.4 mg SUBLINGUAL Q5M PRN 11/01/22 11/01/22 History Rosuvastatin [Crestor] 10 mg PO HS 11/01/22 11/01/22 History metFORMIN HCL ER [Glucophage XR] 500 mg PO HS 11/01/22 11/01/22 History rOPINIRole HCL [Requip] 1 mg PO HS 11/01/22 11/01/22 History rOPINIRole HCL [Requip] 1 mg PO W/SUPPER 11/01/22 11/01/22 History Allergies Allergy/AdvReac Type Severity Reaction Status Date / Time No Known Allergies Allergy Verified 11/01/22 15:03 Physical Exam Vitals: Vital Signs Temp Pulse Pulse Resp BP BP Pulse Ox 11/01/22 15:32 99 11/01/22 15:30 97.6 F 59 L 18 119/77 100 11/01/22 14:44 60 18 110/54 100 11/01/22 12:52 68 18 99/61 99 11/01/22 12:48 98 F 73 18 129/81 96 Intake and Output 11/01/22 11/01/22 11/01/22 06:59 14:59 22:59 Other: Weight 60.781 kg 60.781 kg GENERAL: The patient is alert and oriented x3, not in any acute distress. Well developed, well nourished. HEENT: Pupils are round and equally reacting to light. EOMI. No scleral icterus. No conjunctival pallor. Normocephalic, atraumatic. No pharyngeal erythema. No thyromegaly. CARDIOVASCULAR: S1 and S2 present. No murmurs, rubs, or gallops. PULMONARY: Chest is clear to auscultation, no wheezing or crackles. ABDOMEN: Soft, nontender, nondistended, normoactive bowel sounds. No palpable organomegaly. MUSCULOSKELETAL: No joint swelling or deformity. EXTREMITIES: No cyanosis, clubbing, or pedal edema. NEUROLOGICAL: Gross neurological examination did not reveal any focal deficits. SKIN: No rashes. no petechiae. Results CBC & Chem 7: 11/01/22 13:12 11/01/22 13:12 Labs: Abnormal Lab Results - Last 24 Hours (Table) 11/01/22 11/01/22 Range/Units 13:12 16:34 Carbon Dioxide 21 L (22-30) mmol/L Glucose 166 H (74-99) mg/dL POC Glucose (mg/dL) 118 H (70-110) mg/dL Thrombosis Risk Factor Assmnt - Choose All That Apply Any of the Below Risk Factors Present?: No Other Risk Factors: No Other congenital or acquired thrombophilia - If yes, enter type in comment: No Thrombosis Risk Factor Assessment Level: Very Low Risk Assessment and Plan Assessment: chest pain, rule out cardiac causes Hypertension Hyperlipidemia Diabetes mellitus History of coronary artery disease Hypothyroidism Plan: Check serial troponin Continue with aspirin Cardiology consult Continue with heparin drip Labs and medication were reviewed.. Continue same treatment. Continue with symptomatic treatment. Resume home medication. Monitor labs and vitals. DVT and GI prophylaxis. Further recommendations as per clinical course of the chandrika ent DVT prophylaxis:s heparin GI Prophylaxis: Pepcid Prognosis is guarded
[2022-11-01] MEDS: CHOLECALCIFEROL 25 MCG (1000 IU) TABLET PO SCH (17:27)
[2022-11-01] MEDS: SODIUM CHLORIDE 0.9% 1,000 ML IV SCH (17:27)
[2022-11-01] MEDS ORDERED: NON FORMULARY DRUG (Ubidecarenone [Co Q-10] 100 MG Capsule) PO SCH (17:30)
[2022-11-01] MEDS: NON FORMULARY DRUG (Cranberry Fruit Extract [Cranberry] 200 MG Capsule) PO SCH (20:08)
[2022-11-01 20:10] LABS: Glucose,Whole Blood 108 mg/dL (70-110)
[2022-11-01] MEDS: METOPROLOL TARTRATE 25 MG TAB PO SCH (20:37)
[2022-11-01] MEDS: OXYBUTYNIN XL 5 MG TAB.ER.24 PO SCH (20:37)
[2022-11-01] MEDS: FAMOTIDINE 20 MG TAB PO SCH (20:37)
[2022-11-01] MEDS: traZODone HCL 100 MG TAB PO SCH (20:37)
[2022-11-01] MEDS: VIT A,C & E-LUTEIN-MINERALS 1 EACH TAB PO SCH (20:37)
[2022-11-02] MEDS: LEVOTHYROXINE 100 MCG TAB PO SCH (05:40)
[2022-11-02 06:14] LABS: Glucose,Whole Blood 134 mg/dL (70-110)
[2022-11-02] MEDS ORDERED: LEVOTHYROXINE 100 MCG TAB PO SCH (06:30)
[2022-11-02] MEDS ORDERED: LEVOTHYROXINE 50 MCG TAB PO SCH (06:30)
[2022-11-02] MEDS ORDERED: HEPARIN SODIUM,PORCINE 10,000 UNIT in SODIUM CHLORIDE 0.9% 1,000 ML IRRIGATION PRN (07:00)
[2022-11-02] MEDS ORDERED: HEPARIN SODIUM,PORCINE 2,500 UNIT in SODIUM CHLORIDE 0.9% 250 ML IRRIGATION PRN (07:00)
[2022-11-02] MEDS: NON FORMULARY DRUG (Cranberry Fruit Extract [Cranberry] 200 MG Capsule) PO SCH (07:40)
[2022-11-02 07:47] LABS: Basophils % (A) 1 %; Eosinophils # (A) 0.2 k/uL (0-0.7); Eosinophils % (A) 3 %; HCT 40.7 % (34.0-46.0); HGB 13.7 gm/dL (11.4-16.0); Lymphocytes # (A) 1.9 k/uL (1.0-4.8); Lymphocytes % (A) 33 %; MCH 30.7 pg (25.0-35.0); MCHC 33.8 g/dL (31.0-37.0); MCV 90.9 fL (80.0-100.0); Mean Platelet Volume 8.4; Monocytes # (A) 0.5 k/uL (0-1.0); Monocytes % (A) 8 %; Neutrophils # (A) 3.1 k/uL (1.3-7.7); Neutrophils % (A) 53 %; Platelet Count 190 k/uL (150-450); RBC 4.47 m/uL (3.80-5.40); RDW 13.4 % (11.5-15.5); WBC 5.8 k/uL (3.8-10.6)
[2022-11-02] MEDS: CYANOCOBALAMIN 500 MCG TAB PO SCH (07:47)
[2022-11-02] MEDS: METOPROLOL TARTRATE 25 MG TAB PO SCH ×2 (07:48→20:29)
[2022-11-02] MEDS: ATORVASTATIN 20 MG TAB PO SCH (07:48)
[2022-11-02] MEDS: VIT A,C & E-LUTEIN-MINERALS 1 EACH TAB PO SCH ×2 (07:48→20:29)
[2022-11-02] MEDS ORDERED: ATORVASTATIN 80 MG TAB PO SCH (09:00)
[2022-11-02] MEDS ORDERED: metFORMIN 500 MG TAB PO SCH (09:00)
[2022-11-02] MEDS ORDERED: ASPIRIN 325 MG TAB PO SCH (09:00)
[2022-11-02] MEDS ORDERED: CLOPIDOGREL 75 MG TAB PO SCH (09:00)
[2022-11-02] MEDS ORDERED: ATORVASTATIN 80 MG TAB PO STA (09:38)
[2022-11-02] MEDS ORDERED: ALPRAZolam 0.25 MG TAB PO PRN (09:38)
[2022-11-02] MEDS ORDERED: ALPRAZolam 0.5 MG TAB PO PRN (09:38)
[2022-11-02] MEDS ORDERED: NITROGLYCERIN SL TABS 0.4 MG TAB SUBLINGUAL PRN (09:38)
[2022-11-02] MEDS ORDERED: ASPIRIN 325 MG TAB PO STA (09:38)
--- NOTE | 2022-11-02 09:41 | P.CRDCN ---
History of Present Illness Consult date: 11/02/22 Requesting physician: Ken E Sheet Reason for Consult (text): chest pain, unstable angina, exertional dyspnea Chief complaint: chest pressure History of present illness: This is a pleasant 77-year-old female patient who follows in the office with Dr. Melo. Has a history of CAD with prior stenting of LAD 2, hypertension, hyperlipidemia. She was seen in the office recently and at that time had complaints of worsening dyspnea on exertion and has been scheduled for stress testing and echocardiogram that are scheduled to be done next month. She presented to the emergency department with complaints of chest pressure, recurrent over the last several months. She feels pressure is very different from what she experienced in the past prior to her previous PCI's therefore did not mention it at her office visit. She was out shopping yesterday and developed some chest pressure and felt she should come to the emergency department for evaluation. Troponins have been negative 3. EKG showed no evidence of ischemia. She was initiated on IV heparin. Vital signs have been stable. She has had no complaints of palpitations, dizziness or lightheadedness. She had no syncope or near syncope. No complaints of orthopnea or PND and no lower extremity edema. She does have occasional h eartburn but seems to be related to her dietary intake. Cardiac catheterization in 2019 and 2020 showed subtotally occluded proximal LAD and she underwent stenting of that vessel Past Medical History Past Medical History: Coronary Artery Disease (CAD), Chest Pain / Angina, Diabetes Mellitus, Eye Disorder, Hyperlipidemia, Hypertension, Thyroid Disorder Additional Past Medical History / Comment(s): macular degeneration, osteoporosi s, restless legs, "borderline" diabetes History of Any Multi-Drug Resistant Organisms: None Reported Past Surgical History: Appendectomy, Bladder Surgery, Heart Catheterization With Stent, Hysterectomy, Tonsillectomy Additional Past Surgical History / Comment(s): kvng cataracts rem. Past Anesthesia/Blood Transfusion Reactions: No Reported Reaction Date of Last Stent Placement:: 10/29/2021 Past Psychological History: No Psychological Hx Reported Smoking Status: Never smoker Past Alcohol Use History: Occasional Past Drug Use History: None Reported - Past Family History Mother History Unknown: Yes Family Medical History: Cancer, Coronary Artery Disease (CAD) Additional Family Medical History / Comment(s): colon Medications and Allergies Home Medications Medication Instructions Recorded Confirmed Type Levothyroxine Sodium [Synthroid] 100 mcg PO DAILY 01/09/14 11/01/22 History ALPRAZolam [Xanax] 0.125 - 0.25 mg PO DAILY PRN 02/04/18 11/01/22 History traZODone HCL [Desyrel] 100 mg PO HS 02/04/18 11/01/22 History Cyanocobalamin [Vitamin B-12] 500 mcg PO DAILY 04/19/20 11/01/22 History Famotidine [Pepcid] 20 mg PO HS 04/19/20 11/01/22 History Metoprolol Tartrate [Lopressor] 25 mg PO BID 04/19/20 11/01/22 History Vit C/E/Zn/Coppr/Lutein/Zeaxan 1 cap PO BID 04/19/20 11/01/22 History [Preservision Areds 2 Softgel] Tolterodine ER [Detrol LA] 4 mg PO HS 04/01/21 11/01/22 History Aspirin EC [Ecotrin Low Dose] 81 mg PO HS 11/01/22 11/01/22 History Cholecalciferol [Vitamin D3 (25 25 mcg PO DAILY 11/01/22 11/01/22 History Mcg = 1000 Iu)] Cranberry Fruit Extract [Cranberry] 500 mg PO DAILY 11/01/22 11/01/22 History Levothyroxine Sodium [Synthroid] 50 mcg PO SUTU 11/01/22 11/01/22 History Nitroglycerin Sl Tabs [Nitrostat] 0.4 mg SUBLINGUAL Q5M PRN 11/01/22 11/01/22 History Rosuvastatin [Crestor] 10 mg PO HS 11/01/22 11/01/22 History metFORMIN HCL ER [Glucophage XR] 500 mg PO HS 11/01/22 11/01/22 History rOPINIRole HCL [Requip] 1 mg PO HS 11/01/22 11/01/22 History rOPINIRole HCL [Requip] 1 mg PO W/SUPPER 11/01/22 11/01/22 History Allergies Allergy/AdvReac Type Severity Reaction Status Date / Time No Known Allergies Allergy Verified 11/01/22 15:03 Physical Exam Vitals: Vital Signs Temp Pulse Pulse Resp BP BP BP 11/02/22 07:44 98.3 F 75 12 128/72 11/02/22 03:25 97.8 F 62 12 124/72 11/01/22 23:10 97.8 F 56 L 15 114/70 11/01/22 19:40 97.7 F 62 15 118/74 11/01/22 15:32 11/01/22 15:30 97.6 F 59 L 18 119/77 11/01/22 14:44 60 18 110/54 11/01/22 12:52 68 18 99/61 11/01/22 12:48 98 F 73 18 129/81 Pulse Ox 11/02/22 07:44 98 11/02/22 03:25 95 11/01/22 23:10 95 11/01/22 19:40 95 11/01/22 15:32 99 11/01/22 15:30 100 11/01/22 14:44 100 11/01/22 12:52 99 11/01/22 12:48 96 Intake and Output 11/01/22 11/02/22 11/02/22 21:59 06:59 14:59 Intake Total Balance Intake: IV Invasive Line 1 Intake, IV Titration Amount Heparin Sod,Pork in 0.45% NaCl 25,000 unit In 0.45 % NaCl 1 250ml.bag @ 12 UNITS/KG/HR 7.294 mls/hr IV .Q24H [facility] Rx#: [id number] Oral Other: Voiding Method Toilet # Voids Weight PHYSICAL EXAMINATION: This is a 77-year-old female in no apparent distress at the time of my examination. HEENT: Head is atraumatic, normocephalic. Pupils are equal, round. Sclerae anicteric. Conjunctivae are clear. Mucous membranes of the mouth are moist. Neck is supple. There is no elevated jugular venous pressure. No carotid bruit is heard. CHEST EXAMINATION: Clear to auscultation bilaterally. No wheezes rales or rhonchi. Respirations even and nonlabored. HEART EXAMINATION: Heart regular, positive S1 and S2. No S3. No S4. No clicks, rubs or murmurs. ABDOMEN: Soft, nontender. Bowel sounds are heard. No organomegaly noted. EXTREMITIES: 2+ peripheral pulses with no evidence of peripheral edema and no calf tenderness noted. NEUROLOGIC EXAMINATION: Patient is awake, alert and oriented x3. Results 11/02/22 07:20 11/01/22 13:12 Cardiac Enzymes 11/01/22 11/01/22 11/01/22 Range/Units 13:12 13:12 16:06 AST 22 (14-36) U/L Troponin I <0.012 <0.012 (0.000-0.034) ng/mL 11/01/22 Range/Units 19:16 AST (14-36) U/L Troponin I <0.012 (0.000-0.034) ng/mL Coagulation 11/01/22 11/02/22 11/02/22 Range/Units 16:06 01:01 07:20 APTT 165.6 H* 34.8 H 44.3 H (22.0-30.0) sec CBC 11/01/22 11/02/22 Range/Units 13:12 07:20 WBC 7.0 5.8 (3.8-10.6) k/uL RBC 4.54 4.47 (3.80-5.40) m/uL Hgb 14.1 13.7 (11.4-16.0) gm/dL Hct 41.4 40.7 (34.0-46.0) % Plt Count 222 190 (150-450) k/uL Comprehensive Metabolic Panel 11/01/22 Range/Units 13:12 Sodium 137 (137-145) mmol/L Potassium 4.3 (3.5-5.1) mmol/L Chloride 104 (98-107) mmol/L Carbon Dioxide 21 L (22-30) mmol/L BUN 15 (7-17) mg/dL Creatinine 0.54 (0.52-1.04) mg/dL Glucose 166 H (74-99) mg/dL Calcium 9.3 (8.4-10.2) mg/dL AST 22 (14-36) U/L ALT 18 (4-34) U/L Alkaline Phosphatase 77 (38-126) U/L Total Protein 6.8 (6.3-8.2) g/dL Albumin 4.4 (3.5-5.0) g/dL Current Medications Generic Name Dose Route Start Last Admin Trade Name Freq PRN Reason Stop Dose Admin Alprazolam 0.25 mg 11/01/22 14:47 Alprazolam 0.25 Mg Tab PO DAILY PRN Anxiety Aspirin 81 mg 11/03/22 09:00 Aspirin 81 Mg PO DAILY [facility] Atorvastatin Calcium 20 mg 11/02/22 09:00 11/02/22 07:48 Atorvastatin 20 Mg Tab PO 20 mg DAILY [facility] Administration Cholecalciferol 25 mcg 11/01/22 17:30 11/01/22 17:27 Cholecalciferol 25 Mcg (1000 Iu) Tablet PO 25 mcg W/SUPPER FATIH Administration Cyanocobalamin 500 mcg 11/02/22 09:00 11/02/22 07:47 Cyanocobalamin 500 Mcg Tab PO 500 mcg DAILY [facility] Administration Famotidine 20 mg 11/01/22 21:00 11/01/22 20:37 Famotidine 20 Mg Tab PO 20 mg HS [facility] Administration Sodium Chloride 1,000 mls @ 20 mls/hr 11/01/22 14:45 11/01/22 17:27 Saline 0.9% IV 20 mls/hr .Q24H [facility] Administration Levothyroxine Sodium 50 mcg 11/02/22 06:30 11/02/22 05:40 Levothyroxine 50 Mcg Tab PO 50 mcg SuTu@0630 [facility] Administration Levothyroxine Sodium 100 mcg 11/02/22 06:30 11/02/22 05:40 Levothyroxine 100 Mcg Tab PO 100 mcg 0630 [facility] Administration Metformin HCl 250 mg 11/02/22 09:00 Metformin 500 Mg Tab PO BID [facility] Metoprolol Tartrate 25 mg 11/01/22 21:00 11/02/22 07:48 Metoprolol Tartrate 25 Mg Tab PO 25 mg BID [facility] Administration Multivitamins/Minerals 1 each 11/01/22 21:00 11/02/22 07:48 Vit A,C & B-Cmmnhk-Mzyxpasp 1 Each Tab PO 1 each BID [facility] Administration Nitroglycerin 0.4 mg 11/01/22 14:45 Nitroglycerin Sl Tabs 0.4 Mg Tab SUBLINGUAL Q5M PRN Chest Pain Non-Formulary Medication 100 mg 11/01/22 17:30 11/01/22 15:40 Ubidecarenone [Co Q-10] PO Not Given W/SUPPER [facility] Non-Formulary Medication 500 mg 11/01/22 21:00 11/02/22 07:40 Cranberry Fruit Extract [Cranberry] PO Not Given BID [facility] Oxybutynin Chloride 10 mg 11/01/22 21:00 11/01/22 20:37 Oxybutynin Xl 5 Mg Tab.Er.24 PO 10 mg HS [facility] Administration Ropinirole HCl 1 mg 11/01/22 21:00 11/01/22 20:37 Ropinirole Hcl 1 Mg Tab PO 1 mg HS [facility] Administration Ropinirole HCl 1 mg 11/01/22 17:30 11/01/22 17:27 Ropinirole Hcl 1 Mg Tab PO 1 mg W/SUPPER [facility] Administration Trazodone HCl 100 mg 11/01/22 21:00 11/01/22 20:37 Trazodone Hcl 100 Mg Tab PO 100 mg HS [facility] Administration Intake and Output 11/01/22 11/02/22 11/02/22 21:59 06:59 14:59 Intake Total Balance Intake: IV Invasive Line 1 Intake, IV Titration Amount Heparin Sod,Pork in 0.45% NaCl 25,000 unit In 0.45 % NaCl 1 250ml.bag @ 12 UNITS/KG/HR 7.294 mls/hr IV .Q24H [facility] Rx#: [id number] Oral Other: Voiding Method Toilet # Voids Weight 11/02/22 07:20 11/01/22 13:12 Assessment and Plan Assessment: #1 symptoms of chest pressure, acute coronary event has ruled out, troponins negative 3 #2 CAD with prior stenting of the LAD 2 and mild disease in the RCA and left circumflex #3 hypertension #4 hyperlipidemia Plan: From Cardiology's perspective we will discontinue IV heparin. We recommend patient undergo cardiac catheterization to be done today. The risks, benefits and alternative therapies for the above-mentioned procedure and for both sedation/analgesia as well as necessary blood product administration, if indicated, have been discussed with the patient. The patient has indicated understanding and acceptance of the risks and procedures discussed. Questions have been answered appropriately and she is agreeable to move forward with the above stated procedure. DIRECTOR NEW PRODUCT note has been reviewed, I agree with a documented findings and plan of care. Patient was seen and examined.
--- NOTE | 2022-11-02 10:41 | P.PN ---
Subjective This is a pleasant 77 years old female with multiple medical problems as below including Coronary Artery Disease status post stent, Diabetes Mellitus, Hyperlipidemia, Hypertension, hypothyroidism,, macular degeneration, ost eoporosis, restless legs, Presents because of chest pain has been going on on and off for about 3 months, she described it as pressure rather than pain in the middle of her chest radiating to the right side, today she was doing shopping when she felt it as 6/10 and decided to come to the hospital. Associated with some dyspnea but no coughing. Discharge patient denies change in urine or bowel habits. No headache weakness or numbness She denies smoking alcohol or illicit drugs CBC, BMP liver enzymes are unremarkable. Troponin 1 is negative with 0.012, d- dimer negative at 0.3 Chest x-ray: No acute process EKG showing normal sinus rhythm at [address]-T changes On admission resumed her aspirin and started on heparin drip 11/02/2022 Patient with no chest pain, no dyspnea, no other complaints Heparin drip is Discontinued Cardiology team plan for cardiac cath today Continue on aspirin Objective - Vital Signs Vital signs: Vital Signs Temp 98.3 F 11/02/22 07:44 Pulse 75 11/02/22 07:44 Resp 12 11/02/22 07:44 BP 128/72 11/02/22 07:44 Pulse Ox 98 11/02/22 07:44 FiO2 Intake & Output 11/01/22 11/02/22 11/02/22 17:59 06:59 18:59 Intake Total Balance Weight Intake: IV Invasive Line 1 Intake, IV Titration Amount Heparin Sod,Pork in 0.45% NaCl 25,000 unit In 0.45 % NaCl 1 250ml.bag @ 12 UNITS/KG/HR 7.294 mls/hr IV .Q24H [facility] Rx#: [id number] Oral Other: Voiding Method Toilet # Voids - Exam GENERAL: The patient is alert and oriented x3, not in any acute distress. Well developed, well nourished. HEENT: Pupils are round and equally reacting to light. EOMI. No scleral icterus. No conjunctival pallor. Normocephalic, atraumatic. No pharyngeal erythema. No thyromegaly. CARDIOVASCULAR: S1 and S2 present. No murmurs, rubs, or gallops. PULMONARY: Chest is clear to auscultation, no wheezing or crackles. ABDOMEN: Soft, nontender, nondistended, normoactive bowel sounds. No palpable organomegaly. MUSCULOSKELETAL: No joint swelling or deformity. EXTREMITIES: No cyanosis, clubbing, or pedal edema. NEUROLOGICAL: Gross neurological examination did not reveal any focal deficits. SKIN: No rashes. no petechiae. - Labs CBC & Chem 7: 11/02/22 07:20 11/01/22 13:12 Labs: Abnormal Lab Results - Last 24 Hours (Table) 11/01/22 11/01/22 11/01/22 Range/Units 13:12 16:06 16:34 APTT 165.6 H* (22.0-30.0) sec Carbon Dioxide 21 L (22-30) mmol/L Glucose 166 H (74-99) mg/dL POC Glucose (mg/dL) 118 H (70-110) mg/dL Hemoglobin A1c (0.0-6.0) % 11/01/22 11/02/22 11/02/22 Range/Units 19:16 01:01 06:12 APTT 34.8 H (22.0-30.0) sec Carbon Dioxide (22-30) mmol/L Glucose (74-99) mg/dL POC Glucose (mg/dL) 134 H (70-110) mg/dL Hemoglobin A1c 6.5 H (0.0-6.0) % 11/02/22 Range/Units 07:20 APTT 44.3 H (22.0-30.0) sec Carbon Dioxide (22-30) mmol/L Glucose (74-99) mg/dL POC Glucose (mg/dL) (70-110) mg/dL Hemoglobin A1c (0.0-6.0) % Assessment and Plan Assessment: chest pain, rule out cardiac causes Hypertension Hyperlipidemia Diabetes mellitus History of coronary artery disease Hypothyroidism Plan: Continue with aspirin Cardiology consult Patient is going for cardiac cath today with cardiology in Labs and medication were reviewed.. Continue same treatment. Continue with symptomatic treatment. Resume home medication. Monitor labs and vitals. DVT and GI prophylaxis. Further recommendations as per clinical course of the pat ient DVT prophylaxis:s heparin GI Prophylaxis: Pepcid Prognosis is guarded
[2022-11-02 11:23] LABS: Chol/HDL Ratio 2.17 Ratio; LDL Cholesterol,Calculated 42.9 mg/dL (0.0-131.0)
[2022-11-02 11:44] LABS: Glucose,Whole Blood 111 mg/dL (70-110)
[2022-11-02] MEDS ORDERED: VERAPAMIL 2.5 MG/ML 2 ML AMP ONE (12:08)
[2022-11-02] MEDS ORDERED: IV FLUID CONTINUATION 1,000 ML IV ONE (12:25)
[2022-11-02] MEDS ORDERED: fentaNYL (PF) 50 MCG/ML 2 ML AMP ONE (12:31)
[2022-11-02] MEDS ORDERED: HEPARIN SODIUM 1,000 UN/ML (10ML VL) ONE (12:32)
[2022-11-02] MEDS ORDERED: fentaNYL (PF) 50 MCG/1 ML VIAL IV ONE ×2 (12:53→12:58)
[2022-11-02] MEDS ORDERED: MIDAZOLAM 2 MG/2 ML VIAL IV ONE ×2 (12:56→12:58)
[2022-11-02] MEDS ORDERED: LIDOCAINE 1% INJ 10MG/ML (5 ML VIAL-PF) SQ ONE (13:00)
[2022-11-02] MEDS ORDERED: VERAPAMIL SYRINGE (5 MG/10 ML) INTRAARTER ONE (13:01)
[2022-11-02] MEDS: HEPARIN SODIUM 1,000 UN/ML (10ML VL) IV ONE ×2 (13:04→13:10)
[2022-11-02] MEDS ORDERED: NITROGLYCERIN 1000MCG/10ML SYRINGE INTRACORON ONE (13:18)
[2022-11-02] MEDS ORDERED: IOPAMIDOL-370 125ML BTL INJ ONE (13:28)
[2022-11-02] MEDS ORDERED: RX INFO: IV CONTRAST WAS GIVEN 1 EACH MISC MISCELLANE PRN (13:35)
--- NOTE | 2022-11-02 13:42 | P.CARDCATH ---
Date of Procedure: 11/02/22 Description of Procedure: Cardiac Catheterization: The patient is a 77-year-old female with known history of hypertension, hyperlipidemia, diabetes mellitus and CAD who presented with acute dyspnea and chest discomfort with physical activity. Her cardiac enzymes were normal and she had no acute ST segment changes. Recommendations were made regarding cardiac catheterization, the risks and the complications were discussed with the patient who is in full understanding and agreement. Procedure Description: Patient was brought to energy systems laboratory director in fasting semi-sedated state after receiving Fentanyl and Benadryl achieiving moderate conscious sedated state. Using Xylocaine Anesthesia and Seldinger technique, a 6-Chilean sheath was introduced in the right radial artery . Subsequently, selective coronary angiography was performed using a 5-Chilean 3.5 bend Evelio catheter. Multiple views of the coronary artery including hemiaxial views were obtained. The 5-Chilean pigtail catheter was used to cross the aortic valve and LVEDP was calculated. After removing the catheter a 6-Chilean 3.5 left Evelio was introduced into system and subsequently an Omni Doppler flow wire was positioned in the distal LAD, IFR was measured. Following that, catheter and sheath were removed. Hemostasis was obtained with deployment of TR band . There was no immediate complication. Patient was returned to room in stable condition. Of note, the patient received a total of 5000 units of intravenous heparin as well as intra-arterial verapamil. Findings: Left main: This is a short sized vessel, bifurcating into LAD and left circumflex, left main has no high-grade stenosis. LAD: This is a large size vessel, reaching to the apex. The proximal midsegment of the LAD is stented it has in the mid area of 40-50% in-stent restenosis, the rest of the vessel has no high-grade stenosis Left circumflex: This is a large nondominant vessel giving rise to one large obtuse marginal branch, the left circumflex and its branches have no evidence of high-grade stenosis RCA: This is a dominant vessel advocating distally to PDA and PLV mid RCA has 20-30% plaque, there was no evidence of high-grade stenosis Left Ventriculogram: Not performed Hemodynamics: There was no gradient across the aortic valve, LVEDP was 7-10 mmHg Conclusion: 1. Moderate in-stent restenosis of the LAD with normal IFR of 1.02 consistent with non-hemodynamic significant lesion 2. Mild disease in the RCA 3. Normal LVEDP 4. Right dominance Recommendations: In view of the findings of the IFR I would recommend to continue medical therapy with aggressive coronary risks modification. The findings and the recommendations were discussed with the patient and the family and they were in full understanding and agreement. Duration of sedation is 33 minutes.
[2022-11-02] MEDS ORDERED: SODIUM CHLORIDE 0.9% 1,000 ML IV SCH (13:45)
[2022-11-02] MEDS: SODIUM CHLORIDE 0.9% 1,000 ML IV SCH ×2 (13:54→14:02)
[2022-11-02 13:57] LABS: Glucose,Whole Blood 115 mg/dL (70-110)
[2022-11-02] MEDS: ISOSORBIDE MONONITRATE ER 30 MG TAB.ER.24H PO SCH (14:02)
[2022-11-02] MEDS: metFORMIN 500 MG TAB PO SCH ×2 (14:02→20:29)
[2022-11-02] MEDS ORDERED: SODIUM CHLORIDE 0.9% 250 ML IV ONE (15:30)
[2022-11-02 16:04] LABS: African American GFR (CKD) >90 (>60 ml/min/1.73 sqM); Anion Gap 5 mmol/L; Blood Urea Nitrogen 13 mg/dL (7-17); Carbon Dioxide 24 mmol/L (22-30); Chloride 108 mmol/L (98-107); Glucose 113 mg/dL (74-99); Non-African American GFR(CKD) >90 (>60 ml/min/1.73 sqM); Potassium 4.1 mmol/L (3.5-5.1); Sodium 137 mmol/L (137-145)
[2022-11-02 16:37] LABS: Glucose,Whole Blood 174 mg/dL (70-110)
[2022-11-02] MEDS: traZODone HCL 100 MG TAB PO SCH (20:29)
[2022-11-02] MEDS: HEPARIN SODIUM,PORCINE/PF 5,000 UNIT/0.5 ML SYRINGE SQ SCH (20:29)
[2022-11-02] MEDS: OXYBUTYNIN XL 5 MG TAB.ER.24 PO SCH (20:29)
[2022-11-02] MEDS: FAMOTIDINE 20 MG TAB PO SCH (20:29)
[2022-11-02 20:37] LABS: Glucose,Whole Blood 258 mg/dL (70-110)
[2022-11-02 20:41] VITALS: RESP 16
[2022-11-02] MEDS ORDERED: ACETAMINOPHEN TAB 325 MG TAB PO PRN (20:41)
[2022-11-03 06:08] LABS: Glucose,Whole Blood 113 mg/dL (70-110)
[2022-11-03] MEDS: LEVOTHYROXINE 100 MCG TAB PO SCH (06:15)
[2022-11-03 08:32] LABS: African American GFR (CKD) >90 (>60 ml/min/1.73 sqM); Anion Gap 10 mmol/L; Blood Urea Nitrogen 16 mg/dL (7-17); Carbon Dioxide 22 mmol/L (22-30); Chloride 107 mmol/L (98-107); Glucose 141 mg/dL (74-99); Non-African American GFR(CKD) 89 (>60 ml/min/1.73 sqM); Potassium 3.9 mmol/L (3.5-5.1); Sodium 139 mmol/L (137-145)
[2022-11-03] MEDS ORDERED: ASPIRIN 81 MG PO SCH (09:00)
[2022-11-03] MEDS: ISOSORBIDE MONONITRATE ER 30 MG TAB.ER.24H PO SCH (09:16)
[2022-11-03] MEDS: metFORMIN 500 MG TAB PO SCH (09:16)
[2022-11-03] MEDS: VIT A,C & E-LUTEIN-MINERALS 1 EACH TAB PO SCH (09:16)
[2022-11-03] MEDS: CYANOCOBALAMIN 500 MCG TAB PO SCH (09:16)
[2022-11-03] MEDS: ATORVASTATIN 20 MG TAB PO SCH (09:17)
[2022-11-03] MEDS: HEPARIN SODIUM,PORCINE/PF 5,000 UNIT/0.5 ML SYRINGE SQ SCH (09:17)
[2022-11-03] MEDS: METOPROLOL TARTRATE 25 MG TAB PO SCH (09:19)
[2022-11-03 10:24] VITALS: BP 97/58; PULSE 57; TEMP 97.9
[2022-11-03 11:35] LABS: Glucose,Whole Blood 102 mg/dL (70-110)
--- NOTE | 2022-11-03 22:05 | PN ---
PROGRESS NOTE SUBJECTIVE: Ms. Chambers presented with episode of chest pain, underwent cardiac catheterization by Dr. Melo yesterday, which revealed that there was mild in-stent restenosis, but iFR was normal. The patient was advised to continue medical therapy. Nitrates are added, and she will be discharged today. Right radial site is clean and dry with a good pulse. OBJECTIVE: VITAL SIGNS: Stable. NECK: No JVD. HEART: S1 and S2 heard normally. LUNGS: Clear. ABDOMEN: Otherwise was unchanged. LOWER EXTREMITIES: Otherwise was unchanged. LAD lesion is moderate, but iFR was negative. Plan for discharge on current medical therapy. Dr. Melo will see her in a week. MMODL / IJN: [id number] /
--- NOTE | 2022-11-04 10:15 | CA ---
Transthoracic Echo Report Name: Malu Chambers Age: 77 Gender: F : 1945 Exam Date: 11/03/2022 11:54 Exam Location: [facility] Ht (in): 64 Wt (lb): 134 Ordering Physician: Roselyn Restrepo Attending/Referring Phys: [id number], Kaye Cloth Dye Range Operator Yari Forbes RDCS Procedure CPT: Indications: chest pressure, shortness of breath Cardiac Hx: Technical Quality: Good Contrast 1: Total Dose (mL): Contrast 2: Total Dose (mL): MEASUREMENTS (Male / Female) Normal Values 2D ECHO LV Diastolic Diameter PLAX 4.0 cm 4.2 - 5.9 / 3.9 - 5.3 cm LV Systolic Diameter PLAX 2.8 cm IVS Diastolic Thickness 0.7 cm 0.6 - 1.0 / 0.6 - 0.9 cm LVPW Diastolic Thickness 0.8 cm 0.6 - 1.0 / 0.6 - 0.9 cm LV Relative Wall Thickness 0.4 RV Internal Dim ED PLAX 3.2 cm LA Systolic Diameter LX 3.1 cm 3.0 - 4.0 / 2.7 - 3.8 cm LV Diastolic Volume MOD 4C 69.9 cm??? LV Systolic Volume MOD 4C 36.6 cm??? LV Ejection Fraction MOD 4C 47.6 % LV Diastolic Length 4C 7.6 cm LV Systolic Length 4C 5.8 cm LV Diastolic Volume MOD 2C 67.6 cm??? LV Systolic Volume MOD 2C 29.7 cm??? LV Ejection Fraction MOD 2C 56.1 % LV Diastolic Length 2C 7.5 cm LV Systolic Length 2C 5.5 cm LA Volume 38.6 cm??? 18 - 58 / 22 - 52 cm??? M-MODE Aortic Root Diameter MM 3.0 cm MV E Point Septal Separation 0.7 cm AV Cusp Separation MM 1.9 cm DOPPLER AV Peak Velocity 174.0 cm/s AV Peak Gradient 12.1 mmHg MV Area PHT 3.4 cm??? Mitral E Point Velocity 80.4 cm/s Mitral A Point Velocity 97.1 cm/s Mitral E to A Ratio 0.8 MV Deceleration Time 224.8 ms MV E' Velocity 7.1 cm/s Mitral E to MV E' Ratio 11.4 TR Peak Velocity 244.1 cm/s TR Peak Gradient 23.8 mmHg Right Ventricular Systolic Press 28.6 mmHg FINDINGS Left Ventricle Left ventricular ejection fraction is estimated at 55-60 %. Normal left ventricular systolic function with no obvious regional wall motion abnormalities. Left ventricular cavity size normal. Left ventricular wall thickness normal. Right Ventricle Normal right ventricular size and function. Right ventricular systolic pressure within normal limits. Right Atrium Normal right atrial size. Left Atrium Normal left atrial size. Mitral Valve Structurally normal mitral valve. Trace to mild mitral regurgitation. Aortic Valve Trileaflet aortic valve. No aortic valve stenosis or regurgitation. Tricuspid Valve Structurally normal tricuspid valve. Mild tricuspid regurgitation. Pulmonic Valve Structurally normal pulmonic valve. No pulmonic regurgitation. Pericardium Normal pericardium. No pericardial effusion. Aorta Normal size aortic root and proximal ascending aorta. CONCLUSIONS Normal biventricular dimension and systolic function Aortic sclerosis was no stenosis or insufficiency Normal mitral valve leaflets was mild MR Previewed by: Dr. Reymundo Barron MD (Electronically Signed) Final Date: 04 November 2022 10:15
--- NOTE | 2022-11-20 00:38 | P.DS ---
Providers Date of admission: 11/01/22 14:46 Expected date of discharge: 11/03/22 Attending physician: Ken Lala MD Consults: 11/01/22 14:46 Consult Physician Urgent Consulting Provider: Fiorella Melo Consult Reason/Comments: Chest pain, unstable angina, exertional dyspnea Do you want consulting provider notified?: Yes Primary care physician: Anna Ash Hospital Course: Discharge diagnosis chest pain, ruled out cardiac causes/ CAD with prior stenting of the LAD 2 and mild disease in the RCA and left circumflex Hypertension Hyperlipidemia Diabetes mellitus Hypothyroidism Hospital course This is a pleasant 77 years old female with multiple medical problems as below including Coronary Artery Disease status post stent, Diabetes Mellitus, Hyperlipidemia, Hypertension, hypothyroidism,, macular degeneration, osteoporosis, restless legs, Presents because of chest pain has been going on on and off for about 3 months, she described it as pressure rather than pain in the middle of her chest radiating to the right side, today she was doing shopping when she felt it as 6/10 and decided to come to the hospital. Associated with some dyspnea but no coughing. Discharge patient denies change in urine or bowel habits. No headache weakness or numbness She denies smoking alcohol or illicit drugs CBC, BMP liver enzymes are unremarkable. Troponin 1 is negative with 0.012, d- dimer negative at 0.3 Chest x-ray: No acute process EKG showing normal sinus rhythm at [address]-T changes On admission resumed her aspirin and started on heparin drip 11/02/2022 Patient with no chest pain, no dyspnea, no other complaints Heparin drip is Discontinued Cardiology team plan for cardiac cath today Continue on aspirin 11/02/2022 Patient underwent cardiac catheterization today which showed moderate in-stent stenosis of the LAD with normal IFR. Recommended aggressive medical therapy and risk factor modification. Findings were discussed with the patient and the family and the RN will understanding and agreement. Patient otherwise denied any complaints of chest pain. No complaints of shortness of breath. No fever no chills. No cough or sputum production. Patient is being discharged home today. Patient was started on Imdur and also continue with Lipitor 20 mg daily. New prescriptions were sent to pharmacy. Patient was recommended to follow-up with cardiology and PCP. - Exam GENERAL: The patient is alert and oriented x3, not in any acute distress. Well developed, well nourished. HEENT: Pupils are round and equally reacting to light. EOMI. No scleral icterus. No conjunctival pallor. Normocephalic, atraumatic. No pharyngeal erythema. No thyromegaly. CARDIOVASCULAR: S1 and S2 present. No murmurs, rubs, or gallops. PULMONARY: Chest is clear to auscultation, no wheezing or crackles. ABDOMEN: Soft, nontender, nondistended, normoactive bowel sounds. No palpable organomegaly. MUSCULOSKELETAL: No joint swelling or deformity. EXTREMITIES: No cyanosis, clubbing, or pedal edema. NEUROLOGICAL: Gross neurological examination did not reveal any focal deficits. SKIN: No rashes. no petechiae. Objective - Vital Signs Vital signs: Vital Signs Temp 98 F 11/03/22 03:27 Pulse 56 L 11/03/22 03:27 Resp 16 11/03/22 03:27 BP 91/55 11/03/22 03:27 Pulse Ox 96 11/03/22 08:04 FiO2 21 11/03/22 08:04 Intake & Output 11/02/22 11/03/22 11/03/22 18:59 06:59 18:59 Intake Total 654 540 240 Balance 654 540 240 Intake: IV 300 Oral 354 540 240 Other: Voiding Method Toilet Toilet # Voids 1 - Labs CBC & Chem 7: 11/02/22 07:20 11/03/22 07:52 Labs: Abnormal Lab Results - Last 24 Hours (Table) 11/02/22 11/02/22 11/02/22 Range/Units 11:42 13:55 14:05 Chloride 108 H (98-107) mmol/L Creatinine 0.50 L (0.52-1.04) mg/dL Glucose 113 H (74-99) mg/dL POC Glucose (mg/dL) 111 H 115 H (70-110) mg/dL 11/02/22 11/02/22 11/03/22 Range/Units 16:35 20:36 06:07 Chloride (98-107) mmol/L Creatinine (0.52-1.04) mg/dL Glucose (74-99) mg/dL POC Glucose (mg/dL) 174 H 258 H 113 H (70-110) mg/dL 11/03/22 Range/Units 07:52 Chloride (98-107) mmol/L Creatinine (0.52-1.04) mg/dL Glucose 141 H (74-99) mg/dL POC Glucose (mg/dL) (70-110) mg/dL Patient Condition at Discharge: Stable Plan - Discharge Summary Discharge Rx Participant: No New Discharge Prescriptions: New Isosorbide Mononitrate ER [Imdur] 30 mg PO DAILY #30 tab Atorvastatin [Lipitor] 20 mg PO DAILY #30 tab Continue Levothyroxine Sodium [Synthroid] 100 mcg PO DAILY traZODone HCL [Desyrel] 100 mg PO HS ALPRAZolam [Xanax] 0.125 - 0.25 mg PO DAILY PRN PRN Reason: Anxiety Vit C/E/Zn/Coppr/Lutein/Zeaxan [Preservision Areds 2 Softgel] 1 cap PO BID Cyanocobalamin [Vitamin B-12] 500 mcg PO DAILY Famotidine [Pepcid] 20 mg PO HS Metoprolol Tartrate [Lopressor] 25 mg PO BID Tolterodine ER [Detrol LA] 4 mg PO HS Levothyroxine Sodium [Synthroid] 50 mcg PO SUTU Cranberry Fruit Extract [Cranberry] 500 mg PO DAILY Aspirin EC [Ecotrin Low Dose] 81 mg PO HS rOPINIRole HCL [Requip] 1 mg PO HS metFORMIN HCL ER [Glucophage XR] 500 mg PO HS Cholecalciferol [Vitamin D3 (25 Mcg = 1000 Iu)] 25 mcg PO DAILY Nitroglycerin Sl Tabs [Nitrostat] 0.4 mg SUBLINGUAL Q5M PRN PRN Reason: Chest Pain rOPINIRole HCL [Requip] 1 mg PO W/SUPPER Discontinued Rosuvastatin [Crestor] 10 mg PO HS Discharge Medication List Levothyroxine Sodium [Synthroid] 100 mcg PO DAILY 01/09/14 [History] ALPRAZolam [Xanax] 0.125 - 0.25 mg PO DAILY PRN 02/04/18 [History] traZODone HCL [Desyrel] 100 mg PO HS 02/04/18 [History] Cyanocobalamin [Vitamin B-12] 500 mcg PO DAILY 04/19/20 [History] Famotidine [Pepcid] 20 mg PO HS 04/19/20 [History] Metoprolol Tartrate [Lopressor] 25 mg PO BID 04/19/20 [History] Vit C/E/Zn/Coppr/Lutein/Zeaxan [Preservision Areds 2 Softgel] 1 cap PO BID 04/19/20 [History] Tolterodine ER [Detrol LA] 4 mg PO HS 04/01/21 [History] Aspirin EC [Ecotrin Low Dose] 81 mg PO HS 11/01/22 [History] Cholecalciferol [Vitamin D3 (25 Mcg = 1000 Iu)] 25 mcg PO DAILY 11/01/22 [History] Cranberry Fruit Extract [Cranberry] 500 mg PO DAILY 11/01/22 [History] Levothyroxine Sodium [Synthroid] 50 mcg PO SUTU 11/01/22 [History] Nitroglycerin Sl Tabs [Nitrostat] 0.4 mg SUBLINGUAL Q5M PRN 11/01/22 [History] metFORMIN HCL ER [Glucophage XR] 500 mg PO HS 11/01/22 [History] rOPINIRole HCL [Requip] 1 mg PO HS 11/01/22 [History] rOPINIRole HCL [Requip] 1 mg PO W/SUPPER 11/01/22 [History] Atorvastatin [Lipitor] 20 mg PO DAILY #30 tab 11/03/22 [Rx] Isosorbide Mononitrate ER [Imdur] 30 mg PO DAILY #30 tab 11/03/22 [Rx] Follow up Appointment(s)/Referral(s): Fiorella Melo MD [STAFF PHYSICIAN] - 11/11/22 10:00 am Anna Ash MD [Primary Care Provider] - 11/06/22 11:30 am Patient Instructions/Handouts: *[facility] - After Heart Catheterization - Sales Representative Instructions Discharge Disposition: HOME SELF-CARE
== END 2022-11-03 13:37 | disposition home or self-care (01) ==
LOC: EC 12:47 → 3SCARD 14:46 → INTOOBSV 11-03 08:37 → OBSVTOIN 11-03 08:37 → UNDODISIN 11-03 13:37
PROVIDERS: ADMIT Internal Medicine; ATTEND Internal Medicine
DX: R07.89 Other chest pain (principal); T82.855A Stenosis of coronary artery stent, initial encounter; E11.9 Type 2 diabetes mellitus without complications; I10 Essential (primary) hypertension; E78.5 Hyperlipidemia, unspecified; I25.10 Atherosclerotic heart disease of native coronary artery without angina pectoris; M81.0 Age-related osteoporosis without current pathological fracture; J44.9 Chronic obstructive pulmonary disease, unspecified; G25.81 Restless legs syndrome; I08.1 Rheumatic disorders of both mitral and tricuspid valves; E03.9 Hypothyroidism, unspecified; Z79.890 Hormone replacement therapy; Z95.5 Presence of coronary angioplasty implant and graft; Z79.899 Other long term (current) drug therapy; Z79.84 Long term (current) use of oral hypoglycemic drugs; Z90.710 Acquired absence of both cervix and uterus; Z98.42 Cataract extraction status, left eye; Z98.41 Cataract extraction status, right eye; Z82.49 Family history of ischemic heart disease and other diseases of the circulatory system; Z80.0 Family history of malignant neoplasm of digestive organs; Y83.1 Surgical operation with implant of artificial internal device as the cause of abnormal reaction of the patient, or of later complication, without mention of misadventure at the time of the procedure
CPT/HCPCS: 96365; 96366 ×2; 96372; 96376; 99291; 36415; 94760 ×2; 93306; 93458; 93799; 85379; 83880; 80061; 80053; 80048 ×2; 82550; 83690; 83735; 84484; 85025 ×2; 85730 ×2; 83036; 71046; G0378 ×4; C1887; C1769 ×3; C1894; J2250; J2001; J1644 ×4; Q9967; J3010; 96374

== ENCOUNTER 2024-05-08 11:36 | Emergency (ER) | payer MEDICARE ==
[2024-05-08 11:42] VITALS: RESP 16; TEMP 98
--- NOTE | 2024-05-08 12:02 | ED ---
Nausea/Vomiting/Diarrhea HPI - General Chief complaint: Nausea/Vomiting/Diarrhea Stated complaint: Weakness,Diarrhea Time Seen by Provider: 05/08/24 11:50 Source: patient, RN notes reviewed Mode of arrival: ambulatory Limitations: no limitations - History of Present Illness Initial comments: 78-year-old female presents emergency department accompanied by her chief complaint of diarrhea for the past 5 to 6 days. States that the diarrhea has started to slow over the last day however is still present. Denies fevers, chills, nausea, vomiting, bloody stools or dark or tarry stools. Denies abdominal pain. History of hysterectomy, appendectomy and bladder sling. denies recent travel, urinary symptoms, back or flank pain. Denies cough, rhinorrhea, chest pain, shortness of breath. No other acute complaints at this time - Related Data Home Medications Medication Instructions Recorded Confirmed Levothyroxine Sodium [Synthroid] 100 mcg PO DAILY 01/09/14 11/01/22 ALPRAZolam [Xanax] 0.125 - 0.25 mg PO DAILY PRN 02/04/18 11/01/22 traZODone HCL [Desyrel] 100 mg PO HS 02/04/18 11/01/22 Cyanocobalamin [Vitamin B-12] 500 mcg PO DAILY 04/19/20 11/01/22 Famotidine [Pepcid] 20 mg PO HS 04/19/20 11/01/22 Metoprolol Tartrate [Lopressor] 25 mg PO BID 04/19/20 11/01/22 Vit C/E/Zn/Coppr/Lutein/Zeaxan 1 cap PO BID 04/19/20 11/01/22 [Preservision Areds 2 Softgel] Tolterodine ER [Detrol LA] 4 mg PO HS 04/01/21 11/01/22 Aspirin EC [Ecotrin Low Dose] 81 mg PO HS 11/01/22 11/01/22 Cholecalciferol [Vitamin D3 (25 25 mcg PO DAILY 11/01/22 11/01/22 Mcg = 1000 Iu)] Cranberry Fruit Extract [Cranberry] 500 mg PO DAILY 11/01/22 11/01/22 Levothyroxine Sodium [Synthroid] 50 mcg PO SUTU 11/01/22 11/01/22 Nitroglycerin Sl Tabs [Nitrostat] 0.4 mg SUBLINGUAL Q5M PRN 11/01/22 11/01/22 metFORMIN HCL ER [Glucophage XR] 500 mg PO HS 11/01/22 11/01/22 rOPINIRole HCL [Requip] 1 mg PO HS 11/01/22 11/01/22 rOPINIRole HCL [Requip] 1 mg PO W/SUPPER 11/01/22 11/01/22 Previous Rx's Medication Instructions Recorded Atorvastatin [Lipitor] 20 mg PO DAILY #30 tab 11/03/22 Isosorbide Mononitrate ER [Imdur] 30 mg PO DAILY #30 tab 11/03/22 Allergies Allergy/AdvReac Type Severity Reaction Status Date / Time No Known Allergies Allergy Verified 11/01/22 15:03 Review of Systems ROS Statement: Those systems with pertinent positive or pertinent negative responses have been documented in the HPI. ROS Other: All systems not noted in ROS Statement are negative. Past Medical History Past Medical History: Coronary Artery Disease (CAD), Chest Pain / Angina, Diabetes Mellitus, Eye Disorder, Hyperlipidemia, Hypertension, Thyroid Disorder Additional Past Medical History / Comment(s): macular degeneration, osteoporosis, restless legs, "borderline" diabetes History of Any Multi-Drug Resistant Organisms: None Reported Past Surgical History: Appendectomy, Bladder Surgery, Heart Catheterization With Stent, Hysterectomy, Tonsillectomy Additional Past Surgical History / Comment(s): kvng cataracts rem. Past Anesthesia/Blood Transfusion Reactions: No Reported Reaction Date of Last Stent Placement:: 10/29/2021 Past Psychological History: No Psychological Hx Reported Smoking Status: Never smoker Past Alcohol Use History: Occasional Past Drug Use History: None Reported - Past Family History Mother History Unknown: Yes Family Medical History: Cancer, Coronary Artery Disease (CAD) Additional Family Medical History / Comment(s): colon General Exam - General Exam Comments Initial Comments: Visual Physical Exam Vital signs reviewed General: Well-appearing, nontoxic, no acute distress. Head: Normocephalic, atraumatic Eyes: PERRLA, EOMI ENT: Airway patent Chest: Nonlabored breathing Skin: No visual rash, normal skin tone Neuro: Alert and oriented 3 Musculoskeletal: No gross abnormalities Limitations: no limitations General appearance: alert, in no apparent distress ENT exam: Present: normal exam, mucous membranes moist Neck exam: Present: normal inspection. Absent: tenderness, meningismus, lymphadenopathy Respiratory exam: Present: normal lung sounds bilaterally. Absent: respiratory distress, wheezes, rales, rhonchi, stridor Cardiovascular Exam: Present: regular rate, normal rhythm, normal heart sounds. Absent: systolic murmur, diastolic murmur, rubs, gallop, clicks GI/Abdominal exam: Present: soft, normal bowel sounds. Absent: distended, tenderness, guarding, rebound, rigid Extremities exam: Present: normal inspection, full ROM, normal capillary refill. Absent: tenderness, pedal edema, joint swelling, calf tenderness Back exam: Present: normal inspection Skin exam: Present: warm, dry, intact, normal color. Absent: rash Course Vital Signs 05/08/24 05/08/24 05/08/24 11:39 15:54 16:42 Temperature 98 F Pulse Rate 73 69 74 Respiratory 16 16 16 Rate Blood Pressure 152/78 133/74 167/88 O2 Sat by Pulse 97 96 97 Oximetry Medical Decision Making - Medical Decision Making Was pt. sent in by a medical professional or institution (, PA, PRODUCT DEVELOPMENT CARPENTER, urgent care, hospital, or snf...) When possible be specific @ -No Did you speak to anyone other than the patient for history (EMS, parent, family, police, friend...)? What history was obtained from this source @ -Respiratory patient's at bedside states the patient has been having multiple episodes of diarrhea over the last few days that seem exacerbated after she eats food Did you review nursing and triage notes (agree or disagree)? Why? @ -I reviewed and agree with nursing and triage notes Were old charts reviewed (outside hosp., previous admission, EMS record, old EKG, old radiological studies, urgent care reports/EKG's, snf records)? Report findings @ -No old charts were reviewed Differential Diagnosis (chest pain, altered mental status, abdominal pain women, abdominal pain men, vaginal bleeding, weakness, fever, dyspnea, syncope, headache, dizziness, GI bleed, back pain, seizure, CVA, palpatations, mental health, musculoskeletal)? @ -Differential Abdominal Pain Women: Appendicitis, Cholecystitis, diverticulosis, ischemic bowel, pancreatitis, hepatitis, UTI, gastroenteritis, AAA, incarcerated hernia, bowel obstruction, constipation, inflammatory bowel, hepatitis, peptic ulcer disease, splenic inf arction, perforated viscus, vulvitis, ovarian torsion, PID, kidney stone, placenta abruption, this is not meant to be an all-inclusive list EKG interpreted by me (3pts min.). @ -none X-rays interpreted by me (1pt min.). @ -None done CT interpreted by me (1pt min.). @ -None done U/S interpreted by me (1pt. min.). @ -None done What testing was considered but not performed or refused? (CT, X-rays, U/S, labs)? Why? @ -CT imaging diagnosis include but deferred this time. On evaluation patient she has no abdominal tenderness additionally laboratory studies are unremarkable. Patient agree with deferring imaging at this time symptoms are likely secondary to a gastroenteritis. What meds were considered but not given or refused? Why? @ -None Did you discuss the management of the patient with other professionals (professionals i.e. , PA, PRODUCT DEVELOPMENT CARPENTER, lab, RT, psych nurse, social services analyst, watch inspector final movement, teacher, chief supply chain officer, case picker)? Give summary @ -No Was smoking cessation discussed for >3mins.? @ -No Was critical care preformed (if so, how long)? @ -No Were there social determinants of health that impacted care today? How? (Homelessness, low income, unemployed, alcoholism, drug addiction, patrick sportation, low edu. Level, literacy, decrease access to med. care, group home, rehab)? @ -No Was there de-escalation of care discussed even if they declined (Discuss DNR or withdrawal of care, Hospice)? DNR status @ -No What co-morbidities impacted this encounter? (DM, HTN, Smoking, COPD, CAD, Cancer, CVA, ARF, Chemo, Hep., AIDS, mental health diagnosis, sleep apnea, morbid obesity)? @ -None Was patient admitted / discharged? Hospital course, mention meds given and route, prescriptions, significant lab abnormalities, going to OR and other pertinent info. @ -Discharge. 78-year-old female with diarrhea. On examination patient is resting comfortably no signs of acute distress. Vitals are stable. Patient did not have any abdominal tenderness on examination. All sounds are equal throughout all quadrants. Patient has been emergency department for approximately 4 and half hours and has not had an episode of diarrhea. Patient is provided with a liter fluid bolus pending laboratory results. CBC within normal limits, CMP and pancreatic enzymes unremarkable. Reevaluation after flui ds, patient is feeling well and is, had an episode of diarrhea. Discussed with patient at bedside that symptoms are likely secondary to gastroenteritis and will not benefit from antidiarrheals as this may worsen the infection. Discussed with patient that is important for infection given its course and continue to be related to the body acute diarrhea. Recommend that she increase oral hydration and follow liquid diet over the next 24 hours and slowly reintroducing foods as tolerated. All questions answered at bedside and strict return parameters isaac with the patient she is verbalized understanding. Discussed with Dr. Wheat Undiagnosed new problem with uncertain prognosis? @ -No Drug Therapy requiring intensive monitoring for toxicity (Heparin, Nitro, Insulin, Cardizem)? @ -No Were any procedures done? @ -No Diagnosis/symptom? @ -diarrhea Acute, or Chronic, or Acute on Chronic? @ -Acute Uncomplicated (without systemic symptoms) or Complicated (systemic symptoms)? @ -Uncomplicated Side effects of treatment? @ -No Exacerbation, Progression, or Severe Exacerbation? @ -No Poses a threat to life or bodily function? How? (Chest pain, USA, ID, pneumonia, PE, COPD, DKA, ARF, appy, cholecystitis, CVA, Diverticulitis, Homicidal, Suicidal, threat to staff... and all critical care pts) @ -No - Lab Data Result diagrams: 05/08/24 12:23 05/08/24 12:23 Lab Results 05/08/24 05/08/24 05/08/24 Range/Units 12:23 12:23 12:23 WBC 7.0 (3.8-10.6) k/uL RBC 4.28 (3.80-5.40) m/uL Hgb 13.3 (11.4-16.0) gm/dL Hct 38.3 (34.0-46.0) % MCV 89.4 (80.0-100.0) fL MCH 31.1 (25.0-35.0) pg MCHC 34.8 (31.0-37.0) g/dL RDW 13.8 (11.5-15.5) % Plt Count 349 (150-450) k/uL MPV 8.1 Neutrophils % 70 % Lymphocytes % 20 % Monocytes % 6 % Eosinophils % 1 % Basophils % 1 % Neutrophils # 4.9 (1.3-7.7) k/uL Lymphocytes # 1.4 (1.0-4.8) k/uL Monocytes # 0.4 (0-1.0) k/uL Eosinophils # 0.1 (0-0.7) k/uL Basophils # 0.0 (0-0.2) k/uL Sodium 136 L (137-145) mmol/L Potassium 4.2 (3.5-5.1) mmol/L Chloride 99 (98-107) mmol/L Carbon Dioxide 26 (22-30) mmol/L Anion Gap 11 mmol/L BUN 8 (7-17) mg/dL Creatinine 0.58 (0.52-1.04) mg/dL Est GFR (CKD-EPI)AfAm >90 (>60 ml/min/1.73 sqM) Est GFR (CKD-EPI)NonAf 88 (>60 ml/min/1.73 sqM) Glucose 105 H (74-99) mg/dL Plasma Lactic Acid Real 1.0 (0.7-2.0) mmol/L Calcium 9.5 (8.4-10.2) mg/dL Magnesium 2.0 (1.6-2.3) mg/dL Total Bilirubin 0.7 (0.2-1.3) mg/dL AST 22 (14-36) U/L ALT 15 (4-34) U/L Alkaline Phosphatase 91 (38-126) U/L Total Protein 6.8 (6.3-8.2) g/dL Albumin 4.2 (3.5-5.0) g/dL Amylase 39 (30-110) U/L Lipase 154 (23-300) U/L Disposition Clinical Impression: Diarrhea Disposition: HOME SELF-CARE Condition: Good Instructions (If sedation given, give patient instructions): Acute Diarrhea (ED) Additional Instructions: Return the emergency department for any new or worsening symptoms. Recommend that you follow a liquid diet over the next 24 hours and slowly reintroduce foods including bananas, rice, applesauce and toast. Follow-up with your prim zaira care provider for further evaluation Is patient prescribed a controlled substance at d/c from ED?: No Referrals: Anna Ash MD [Primary Care Provider] - 1-2 days Time of Disposition: 16:09
[2024-05-08] MEDS: SODIUM CHLORIDE 0.9% 1,000 ML IV STA (15:00)
[2024-05-08 15:26] LABS: ALT 15 U/L (4-34); AST 22 U/L (14-36); African American GFR (CKD) >90 (>60 ml/min/1.73 sqM); Albumin 4.2 g/dL (3.5-5.0); Alkaline Phosphatase 91 U/L (38-126); Amylase 39 U/L (30-110); Anion Gap 11 mmol/L; Blood Urea Nitrogen 8 mg/dL (7-17); Calcium 9.5 mg/dL (8.4-10.2); Carbon Dioxide 26 mmol/L (22-30); Chloride 99 mmol/L (98-107); Glucose 105 mg/dL (74-99); Lipase 154 U/L (23-300); Non-African American GFR(CKD) 88 (>60 ml/min/1.73 sqM); Potassium 4.2 mmol/L (3.5-5.1); Sodium 136 mmol/L (137-145); Total Bilirubin 0.7 mg/dL (0.2-1.3); Total Protein 6.8 g/dL (6.3-8.2)
[2024-05-08 15:27] LABS: Basophils % (A) 1 %; Eosinophils # (A) 0.1 k/uL (0-0.7); Eosinophils % (A) 1 %; HCT 38.3 % (34.0-46.0); HGB 13.3 gm/dL (11.4-16.0); Lymphocytes # (A) 1.4 k/uL (1.0-4.8); Lymphocytes % (A) 20 %; MCH 31.1 pg (25.0-35.0); MCHC 34.8 g/dL (31.0-37.0); MCV 89.4 fL (80.0-100.0); Mean Platelet Volume 8.1; Monocytes # (A) 0.4 k/uL (0-1.0); Monocytes % (A) 6 %; Neutrophils # (A) 4.9 k/uL (1.3-7.7); Neutrophils % (A) 70 %; Platelet Count 349 k/uL (150-450); RBC 4.28 m/uL (3.80-5.40); RDW 13.8 % (11.5-15.5)
[2024-05-08 16:45] VITALS: BP 167/88; PULSE 74
== END 2024-05-08 18:07 | disposition home or self-care (01) ==
LOC: EC 11:36
DX: R19.7 Diarrhea, unspecified (principal)
CPT/HCPCS: 36415; 80053; 82150; 83605; 83690; 83735; 85025; 99283